=== PATIENT | female | born 1980 | race Caucasian/White ===

== ENCOUNTER 2016-12-15 12:49 | Emergency (ER) | payer OTHER ==
[2016-12-15 14:09] VITALS: BP 116/68
--- NOTE | 2016-12-15 14:40 | UC ---
Respiratory Complaint HPI - History of Current Complaint Chief Complaint: UCRespiratory Stated Complaint: RESPIRATORY Time Seen by Provider: 12/15/16 14:30 Hx Obtained From: Patient Hx Last Menstrual Period: 12/05/16 ?: No Onset/Duration: Gradual Onset, Lasting Days - 7, Worse Since - Last 3 days coughing through the night with 2-3 hours sleep. Severity Initially: Moderate Severity Currently: Severe Character: Cough: Nonproductive Aggravating Factors: Allergens Alleviating Factors: Bronchodilator Associated Signs And Symptoms: Positive: Wheezing, URI, Nasal Congestion, Hoarseness. Negative: Fever, Chills, Sinus Discomfort Related History: Seasonal Allergies - Risk Factors Pulmonary Embolism Risk Factors: Smoking Cardiac Risk Factors: Smoking Tuberculosis Risk Factors: Immune Deficienty - Allergies/Home Medications Allergies/Adverse Reactions: Allergies Allergy/AdvReac Type Severity Reaction Status Date / Time Codeine Allergy Severe Airway Verified 12/15/16 14:00 Obstruction Home Medications: Home Medications Adalimumab [Humira] 10 mg SC SEE INSTRUCTIONS 12/15/16 [History Confirmed ] Folic Acid TAB* [Folvite TAB*] 1 mg PO DAILY 12/15/16 [History Confirmed ] Loratadine [Claritin 10 MG CAP] 10 mg PO DAILY 12/15/16 [History Confirmed 12/15] Methotrexate TAB* 10 mg PO Q7D 12/15/16 [History Confirmed 12/15/16] PMH/Surg Hx/FS Hx/Imm Hx Previously Healthy: No - RA Respiratory History: Asthma Other History Of: Negative For: HIV, Hepatitis B, Hepatitis C - Surgical History Surgical History: Yes Surgery Procedure, Year, and Place: Tubal ligation, Appendectomy,. Lt - 2010 - Family History Known Family History: Positive: Cardiac Disease, Hypertension, Diabetes, Renal Disease - Paternal and maternal grandmothers had kidney "cancer." Negative: Blood Disorder - Social History Occupation: Employed Full-time Lives: With Family Alcohol Use: Occasionally Substance Use Type: None Smoking Status (MU): Heavy Every Day Tobacco Smoker Type: Cigarettes Amount Used/How Often: 1/2 PPD Household Exposure Type: Cigarettes Cessation Counseling: Patient Advised to Stop Review of Systems Constitutional: Other - sweats Respiratory: Shortness Of Breath, Cough All Other Systems Reviewed And Are Negative: Yes Physical Exam Triage Information Reviewed: Yes Appearance: No Pain Distress, Well-Nourished, Ill-Appearing - mild Vital Signs: Initial Vital Signs Temp 98.2 F 12/15/16 14:04 Pulse 64 12/15/16 14:04 Resp 18 12/15/16 14:04 BP 116/68 12/15/16 14:04 Pulse Ox 99 12/15/16 14:04 Vital Signs Reviewed: Yes Eyes: Positive: Conjunctiva Clear ENT Exam: Normal Neck exam: Normal Respiratory: Positive: Wheezing - diffuse expiratory Cardiovascular Exam: Normal Musculoskeletal Exam: Normal Neurological Exam: Normal Psychological Exam: Normal Skin Exam: Normal UC Diagnostic Evaluation - Laboratory O2 Sat by Pulse Oximetry: 99 Respiratory Course/Dx - Differential Dx/Diagnosis Differential Diagnosis/HQI/PQRI: Asthma, Lower Resp Infection, Sinusitis Provider Diagnoses: Acute URI. Asthma with acute exacerbation Discharge - Discharge Plan Condition: Stable Disposition: HOME Prescriptions: Albuterol HFA INHALER* [Ventolin HFA Inhaler*] 2 puff INH Q4H PRN #1 mdi PRN Reason: Wheezing predniSONE TAB* [Deltasone TAB*] 20 mg PO DAILY #18 tab Patient Education Materials: Upper Respiratory Infection (ED), Bronchospasm (ED ), Prednisone (By mouth) Additional Instructions: Smoking Cessation Tricks. 1. Cut down by 1 cigarette per day every 2-3 days. Write the number of smokes for that day on the calendar. 2. Identify triggers to smoking: after meals, on the phone, in the car, with coffee, on breaks at work, etc. 3. Formulate a plan with a behavior to replace the smoking. Fireballs in the car , doodle pad on the phone, flavored creamer for the coffee, go for a walk after a meal or on break at work. 4. For stress smokes do deep breathing relaxation. Breath deep in through the nose hold the breath in for a few seconds then breath out slowly through the mouth.
== END 2016-12-15 15:00 | disposition home or self-care (01) ==
LOC: UCCORT 12:49
DX: J06.9 Acute upper respiratory infection, unspecified (principal); J45.901 Unspecified asthma with (acute) exacerbation; F17.210 Nicotine dependence, cigarettes, uncomplicated
CPT/HCPCS: 99212; G0463

== ENCOUNTER 2017-02-01 09:26 | Day surgery (SDC) | payer OTHER ==
--- NOTE | 2017-01-22 03:34 | HP ---
PREOPERATIVE HISTORY AND PHYSICAL: DATE OF ADMISSION: 02/01/17 [facility] CHIEF COMPLAINT: Numbness and tingling in the right hand. HISTORY OF PRESENT ILLNESS: Harriet is a very pleasant 36-year-old female who complains of numbness and tingling in her bilateral hands, worse on the right than on the left. She has had trouble since January 2015. She had a nerve conduction study, which showed severe right and moderate left median nerve entrapment at the wrist. She presents now for right carpal tunnel release. PAST MEDICAL HISTORY: Significant for headaches, chronic cough, heartburn. PAST SURGICAL HISTORY: Negative. FAMILY HISTORY: Positive for cardiac disease, diabetes and cancer. SOCIAL HISTORY: She works as a hairdresser. She smokes cigarettes, occasionally consumes alcohol. REVIEW OF SYSTEMS: Positive for headaches, chronic cough, occasional shortness of breath with exertion and asthma. Positive for heartburn. Otherwise negative for cephalic, cardiovascular, respiratory, gastrointestinal, genitourinary, other musculoskeletal, skin, neurologic, endocrine, and hematologic symptoms. PHYSICAL EXAMINATION GENERAL: She is a healthy appearing, pleasant female in minimal distress at rest. VITAL SIGNS: She is 67 inches tall, weighs 194 pounds. Pulse 74, blood pressure 136/80. HEENT: Exam is unremarkable. Her eye movements are concentric. NECK: She has good range of motion of her neck without pain. No masses are palpated. RESPIRATORY: Her lungs are clear to auscultation, good inspiratory effort, no wheezing. CARDIAC: Regular rate and rhythm without murmur. PERIPHERAL VASCULAR: She has palpable pulses and no peripheral edema. EXTREMITIES: She has positive Tinel's sign and Phalen's test to the right hand. She can flex and extend her fingers well. She has decreased sensation to the median nerve distribution. NEUROLOGICAL: She is alert and oriented without focal deficits. IMPRESSION: Right carpal tunnel syndrome. PLAN: For right carpal tunnel release. The surgical procedure, risks and benefits were explained to the patient today, and she agrees to proceed. A prescription for Ultracet was sent to her pharmacy today. We will see her back in followup 10 to 14 days postop. [id number]/[facility]PS #: [id number] MTDD
[~2017-02-01 09:26] MED LIST: Buffered Lidocaine 0.9% SYRIN* 5 ML/SYR SYRINGE INTRADERM ONE; Famotidine IV* 10 MG/ML 2 ML (20 mg) IV ONE; Famotidine IV* 10 MG/ML 2 ML (20 mg) ONE; Metoclopramide TAB* 10 MG ONE; Metoclopramide TAB* 10 MG PO ONE; Ondansetron INJ* 2 MG/ML VIAL IV PRN; fentaNYL* 50 MCG/ML 2 ML VIAL (100 MCG VIAL) IV PRN
[2017-02-01] MEDS ORDERED: Lidocaine 2% PF * 5 ML VIAL ONE (10:08)
[2017-02-01] MEDS ORDERED: Dexamethasone IV* 4 MG/ML 1 ML (4 MG) ONE (10:08)
[2017-02-01] MEDS ORDERED: Ondansetron INJ* 2 MG/ML VIAL ONE (10:08)
[2017-02-01] MEDS ORDERED: Propofol* 10 MG/ML 20 ML BTL IV PUSH ONE (10:08)
[2017-02-01] MEDS ORDERED: Ketorolac INJ* 30 MG/ML 1 ML VIAL ONE (10:08)
[2017-02-01] MEDS ORDERED: Midazolam* 1 MG/ML 5 ML VIAL (5 MG) ONE (10:09)
[2017-02-01] MEDS ORDERED: fentaNYL* 50 MCG/ML 2 ML VIAL (100 MCG VIAL) ONE (10:09)
[2017-02-01] MEDS ORDERED: Lidocaine 1% INJ* 10 MG/ML 30 ML SDV ONE (10:16)
[2017-02-01 11:01] VITALS: BP 113/84
--- NOTE | 2017-02-02 02:45 | OP ---
DATE OF OPERATION: 02/01/17 [facility] DATE OF : 84 SURGEON: Rolanda Meadows MD. ANIMAL PATHOLOGIST: EYAL Junior. ANESTHESIOLOGIST: Vickey Ayoub MD ANESTHESIA: Local MAC. PRE-OP DIAGNOSIS: Right carpal tunnel syndrome. POST-OP DIAGNOSIS: Right carpal tunnel syndrome. OPERATIVE PROCEDURE: Right carpal tunnel release. ESTIMATED BLOOD LOSS: Zero. TOURNIQUET TIME: 5 minutes. INDICATIONS: Harriet is a 36-year-old female with numbness and tingling in the median nerve distribution of her right hand. She presents for right carpal tunnel release. DESCRIPTION OF PROCEDURE: The patient was brought to the operating room and was given a sedation anesthetic and a local infiltration with 10 cc of 1% plain lidocaine in the palm of her right hand. Skin of her right hand and forearm was prepped and draped in the usual sterile fashion. The hand and forearm was exsanguinated and the tourniquet elevated to 250 mmHg. A longitudinal incision was made in the palm in line with the ring finger, dissected sharply through the subcutaneous tissue down to the transverse carpal ligament. The ligament was divided sharply with a knife and then more proximally with the scissors. The nerve was dissected free from the surrounding tissue and there was an area of moderate compression at the mid portion of the ligament. The wound was irrigated, and the skin edges were reapproximated with 4-0 nylon suture. The wound was dressed with Xeroform, 4x4, Webril and an Dipak wrap. The patient tolerated the procedure well and was brought to the recovery room in good condition. [id number]/[facility] #: [id number] [facility]
== END 2017-02-01 11:21 | disposition home or self-care (01) ==
LOC: OREAST 09:26
PROVIDERS: ATTEND Orthopaedic Surgery
DX: G56.01 Carpal tunnel syndrome, right upper limb (principal); F17.210 Nicotine dependence, cigarettes, uncomplicated
CPT/HCPCS: A9270-GY; J1100; J1885; J2001; J2250; J2405; J2704; J3010

== ENCOUNTER 2017-07-12 07:46 | Day surgery (SDC) | payer OTHER ==
--- NOTE | 2017-07-08 19:43 | HP ---
PREOPERATIVE HISTORY AND PHYSICAL: DATE OF ADMISSION/SURGERY: 07/12/17 DATE OF OFFICE VISIT/ENCOUNTER: 06/12/17 ATTENDING PHYSICIAN: Rolanda Meadows MD * (DICTATED BY EYAL MARCANO) PROCEDURE: Left wrist carpal release. CHIEF COMPLAINT: Numbness and tingling, left hand. HISTORY OF PRESENT ILLNESS: This is a 36-year-old female who complains of numbness and tingling in her left hand ongoing since about January of 2015. She had a nerve conduction study, which showed moderate left median nerve entrapment at the wrist. She has recently undergone a right carpal release and had done quite well with that. She has now consented to proceed with a left wrist carpal tunnel release. PAST MEDICAL HISTORY: 1. Headaches. 2. Chronic cough. 3. Heartburn. 4. Asthma. PAST SURGICAL HISTORY: 1. Right carpal tunnel release. 2. Left pinky mallet finger repair. 3. Appendectomy. 4. Tubal ligation. MEDICATIONS: 1. Albuterol sulfate 1 puff every 6 hours p.r.n. 2. Ibuprofen 800 mg p.r.n. 3. Multi Adult Gummies 2 daily. 4. NicoDerm CQ 7 mg/24 hours apply daily for smoking cessation. 5. Otezla 30 mg twice daily. 6. Triamcinolone acetonide 0.1% apply daily as needed. 7. Vitamin C 5000 units 1 capsule once weekly. ALLERGIES: CODEINE causes hives and throat swelling. FAMILY MEDICAL HISTORY: Positive for cardiac disease, diabetes, and cancer. SOCIAL HISTORY: The patient is employed as a hair assistant. She does smoke cigarettes approximately half a pack per day and drinks alcohol on occasion. No recreational drug use. REVIEW OF SYSTEMS: General: Negative for fevers, chills, or night sweats. No known anesthesia problems. HEENT: Negative for headache, lightheadedness, or syncopal episodes. Integumentary: Negative for abrasions, lesions, or open wounds. Cardiothoracic: Negative for hypertension, chest pain, palpitations, or edema. Pulmonary: Positive for chronic cough. She does have shortness of breath with exertion secondary to asthma . GI: Negative for nausea, vomiting, diarrhea, or constipation. Positive for heartburn. : Negative for nocturia, urinary frequency, urgency, history of UTIs or kidney problems. Musculoskeletal: Positive for current complaint. Negative for chronic or intermittent back pain or history of fractures. Neurological: Positive for numbness and tingling, left hand. Negative for history of seizure, stroke, or epilepsy. Endocrine: Negative for diabetes or thyroid issue. Hematologic: Negative for easy bruising, anemia, excessive bleeding, or history DVT. Infectious Disease: Positive for history of MRSA. Negative for hepatitis C and HIV. PHYSICAL EXAMINATION GENERAL: Well-developed, well-nourished, 36-year-old female, in no acute distress. VITAL SIGNS: Height 5 feet 7 inches, weight 199 pounds, pulse rate 84, blood pressure 116/86. HEENT: Normocephalic, atraumatic. Pupils are equal, round, and reactive to light and accommodation. Extraocular movements are intact. Throat is clear. NECK: Supple. No palpable lymph nodes. PULMONARY: Lungs are clear to auscultation bilaterally. No wheezes, rales, or rhonchi. CARDIOVASCULAR: Regular rate and rhythm. S1, S2. No murmurs, rubs or gallops. No edema. ABDOMEN: Positive bowel sounds, soft, nontender. MUSCULOSKELETAL: On exam of her left hand, there is noticeable thenar atrophy; however, she does have some weakness with thumb abduction. She has a positive Tinel's sign and a positive Phalen's test. She has full range of motion in her fingers and wrist. NEUROLOGICAL: Alert and oriented x3. Cranial nerves II through XII are intact. Sensation is intact to light touch. IMAGING STUDIES: EMG/nerve conduction study shows moderate carpal tunnel syndrome on the left. IMPRESSION: Left carpal tunnel syndrome. PLAN: The patient is scheduled to undergo left wrist carpal tunnel release with Dr. Meadows on 07/12/17. She will return to the office in 10 days postop for followup and suture removal. A prescription for tramadol was e-scribed to the patient's pharmacy for postoperative management. EYAL MARCANO [id number]/[facility] #: [id number] KYLE
[~2017-07-12 07:46] MED LIST changes: -Famotidine IV* 10 MG/ML 2 ML (20 mg) IV ONE; -Famotidine IV* 10 MG/ML 2 ML (20 mg) ONE; -Metoclopramide TAB* 10 MG ONE; -Metoclopramide TAB* 10 MG PO ONE; +Midazolam* 1 MG/ML 2 ML VIAL (2 MG) ONE; -Ondansetron INJ* 2 MG/ML VIAL IV PRN; -fentaNYL* 50 MCG/ML 2 ML VIAL (100 MCG VIAL) IV PRN
[2017-07-12] MEDS ORDERED: fentaNYL* 50 MCG/ML 2 ML VIAL (100 MCG VIAL) ONE (08:11)
[2017-07-12] MEDS ORDERED: Lidocaine 1% INJ* 10 MG/ML 30 ML SDV ONE (08:35)
[2017-07-12] MEDS ORDERED: Lidocaine 2% PF * 5 ML VIAL ONE (09:04)
[2017-07-12] MEDS ORDERED: Propofol* 10 MG/ML 20 ML BTL IV PUSH ONE (09:04)
[2017-07-12] MEDS ORDERED: Naloxone* 0.4 MG/ML 1 ML VIAL IV PRN (09:25)
[2017-07-12] MEDS ORDERED: Ondansetron INJ* 2 MG/ML VIAL IV PRN (09:25)
[2017-07-12 09:30] VITALS: BP 117/63
--- NOTE | 2017-07-13 10:00 | OP ---
DATE OF OPERATION: 07/12/17 [facility] DATE OF : 84 SURGEON: Rolanda Meadows MD [employer] INSTRUCTOR: EYAL Junior ANESTHESIA: Local MAC. PRE-OP DIAGNOSIS: Left carpal tunnel syndrome. POST-OP DIAGNOSIS: Left carpal tunnel syndrome. OPERATIVE PROCEDURE: Left carpal tunnel release. INDICATIONS: Harriet is a 36-year-old female with numbness and tingling in the median nerve distribution of her left hand. She presents for left carpal tunnel release. ESTIMATED BLOOD LOSS: Zero. TOURNIQUET TIME: 5 minutes. DESCRIPTION OF PROCEDURE: The patient was brought to the operating room, was given a sedation anesthetic, and a local infiltration of 10 cc of 1% plain lidocaine in the palm of her left hand. The skin of her left hand and forearm was prepped and draped in the usual sterile fashion. The hand and forearm were exsanguinated and the tourniquet elevated to 250 mmHg. A longitudinal incision was made in the palm in line with the ring finger. We dissected through the subcutaneous tissue down to the transverse carpal ligament. The ligament was divided sharply with a knife and then more proximally with the scissors. The nerve was dissected free from the surrounding tissue and there was an area of moderate compression at the mid portion of the ligament. The wound was irrigated and closed in interrupted fashion with 4-0 nylon suture. The wound was dressed with Xeroform, 4x4, Webril, and an Dipak wrap. The patient tolerated the procedure well and was brought to the recovery room in good condition. [id number]/[facility] #: [id number] MTDD
== END 2017-07-12 09:52 | disposition home or self-care (01) ==
LOC: OREAST 07:46
PROVIDERS: ATTEND Orthopaedic Surgery
DX: G56.02 Carpal tunnel syndrome, left upper limb (principal); J45.909 Unspecified asthma, uncomplicated; M06.9 Rheumatoid arthritis, unspecified; L40.50 Arthropathic psoriasis, unspecified; F17.210 Nicotine dependence, cigarettes, uncomplicated
CPT/HCPCS: J2250; J2704; J3010

== ENCOUNTER 2018-06-19 11:50 | Day surgery (SDC) | payer MEDICAID, OTHER ==
[~2018-06-19 11:50] MED LIST changes: +Famotidine IV* 10 MG/ML 2 ML (20 mg) IV ONE; +Lactated Ringers 1000 ML Bag* 1,000 ML IV SCH; -Midazolam* 1 MG/ML 2 ML VIAL (2 MG) ONE
[2018-06-19] MEDS ORDERED: Famotidine IV* 10 MG/ML 2 ML (20 mg) ONE (12:28)
[2018-06-19] MEDS ORDERED: fentaNYL* 50 MCG/ML 2 ML VIAL (100 MCG VIAL) ONE (13:15)
[2018-06-19] MEDS ORDERED: Dexamethasone IV* 4 MG/ML 1 ML (4 MG) ONE (13:15)
[2018-06-19] MEDS ORDERED: Lidocaine 2% PF * 5 ML VIAL ONE (13:15)
[2018-06-19] MEDS ORDERED: Midazolam* 1 MG/ML 5 ML VIAL (5 MG) ONE (13:15)
[2018-06-19] MEDS ORDERED: Ondansetron INJ* 2 MG/ML VIAL ONE (13:15)
[2018-06-19] MEDS ORDERED: Ketorolac INJ* 30 MG/ML 1 ML VIAL ONE (13:15)
[2018-06-19] MEDS ORDERED: Propofol* 10 MG/ML 20 ML BTL ONE (13:15)
[2018-06-19] MEDS ORDERED: DiMENhydriNATE IV* 50 MG/ML VIAL IV PUSH PRN (13:49)
[2018-06-19] MEDS ORDERED: Naloxone* 0.4 MG/ML 1 ML VIAL IV PRN (13:49)
[2018-06-19] MEDS ORDERED: Acetaminophen TAB* 325 MG PO PRN (13:49)
[2018-06-19] MEDS ORDERED: Scopolamine 1.5 mg* PATCH ONE (14:11)
[2018-06-19] MEDS ORDERED: oxyCODONE/Acetamin 5/325 MG* TAB ONE (15:01)
[2018-06-19 15:07] VITALS: BP 122/93
--- NOTE | 2018-06-19 22:09 | OP ---
DATE OF OPERATION: 06/19/18 - [facility] DATE OF : 84 SURGEON: Norris Pickard MD ANESTHESIA: General endotracheal tube. CERTIFIED APPLIANCE SERVICE TECHNICIAN: None. PRE-OP DIAGNOSIS: Dysfunctional uterine bleeding. POST-OP DIAGNOSIS: Dysfunctional uterine bleeding. OPERATIVE PROCEDURE: D and C, hysteroscopy, endometrial ablation. ESTIMATED BLOOD LOSS: Minimal. SPECIMEN: Includes endometrium. FINDINGS: Include a normal cavity. Uterus was midposition. DESCRIPTION OF PROCEDURE: The patient identified, procedure identified as D and C, hysteroscopy, endometrial ablation. The patient was taken to the operating room, prepped and draped in the usual fashion in the dorsal lithotomy position under general anesthesia. Two single-tooth tenaculums were placed on the anterior lip of the cervix. The cervix was sounded to 8 cm. The Hegar dilator was used to dilate the cervix up to #8 giving the cervical length of 3 cm, making the cavity length of 5 cm. The above findings were noted on hysteroscopy. The hysteroscope was removed and the sharp curette was inserted and sharp curettage was performed with good sampling. The NovaSure device was opened. The array was checked. The device was placed within the uterine cavity , opening width of 4.1 with manipulation nested in at 4.1. The power setting was 113. The CO2 perforation test was performed. The device passed. NovaSure was enabled and NovaSure ablation took place for 57 seconds. At the end of the procedure, device was removed and the hysteroscope was inserted and a good NovaSure ablation was noted. All instruments were removed from the vagina. The sponge and instrument counts were correct. The patient returned to recovery room in stable condition. [id number]/[facility] #: [id number] MTDD
== END 2018-06-19 15:32 | disposition home or self-care (01) ==
LOC: OR 11:50
PROVIDERS: ATTEND Obstetrics & Gynecology
DX: N93.8 Other specified abnormal uterine and vaginal bleeding (principal); M06.9 Rheumatoid arthritis, unspecified; L40.50 Arthropathic psoriasis, unspecified; F41.9 Anxiety disorder, unspecified; F17.210 Nicotine dependence, cigarettes, uncomplicated
CPT/HCPCS: 88305; A9270-GY; J1100; J1885; J2250; J2405; J2704; J3010

== ENCOUNTER 2019-08-26 13:29 | Emergency (ER) | payer MEDICAID, OTHER ==
[2019-08-26 14:52] VITALS: BP 154/91
--- NOTE | 2019-08-26 15:08 | UC ---
Dental HPI - HPI Summary HPI Summary: 39 y/o female presents to the urgent care c/o Right lower dental infection and pain for the past 2 days. Pain now is worse 8/10 and is radiating into RIGHT ear and RT side of neck. She has taking ibuprofen 800mg prn w/o any improvement. Last dose taken today 1100AM. She has a featured molar on the same area and she made a dental appt for next week. She denies fever, trismus, RADER, dizziness, SOB, sore throat, abdominal pain, dizziness, chest pain, N/V/D. - History of Current Complaint Chief Complaint: UCDentalProblem Stated Complaint: DENTAL Time Seen by Provider: 08/26/19 15:03 Hx Obtained From: Patient Hx Last Menstrual Period: 08/17/2019 ?: No Onset/Duration: Gradual Onset, Lasting Days - 2 days, Still Present, Worse Since - last night Severity: Severe Pain Intensity: 10 Pain Scale Used: 0-10 Numeric Aggravating Factor(s): Chewing Alleviating Factor(s): OTC Meds - Ibuprofen PO 800mg. Last dose taken around 11am today Related History: Other - fracture molar on Rt lower jaw - Allergies/Home Medications Allergies/Adverse Reactions: Allergies Allergy/AdvReac Type Severity Reaction Status Date / Time codeine Allergy Airway Verified 08/27/19 12:16 Obstruction Home Medications: Home Medications Amoxicillin PO (*) [Amoxicillin 500 MG CAP*] 500 mg PO TID #30 cap 08/26/19 [Rx] Lidocaine 2% VISCOUS* [Xylocaine 2% Viscous*] 15 ml SWISH SPIT Q6H PRN #1 btl [Rx] PMH/Surg Hx/FS Hx/Imm Hx Previously Healthy: Yes Other Endocrine History: RA, psoriasis, Terence Respiratory History: Asthma Other History Of: Negative For: HIV, Hepatitis B, Hepatitis C - Surgical History Surgical History: Yes Surgery Procedure, Year, and Place: Tubal ligation, 2012. Appendectomy, , 2001. Lt [facility] - 2010. right carpal tunnel 01/2017, [facility]. LEFT CARPAL TUNNEL [id number] - Family History Known Family History: Positive: Cardiac Disease, Hypertension, Diabetes, Renal Disease - Paternal and maternal grandmothers had kidney "cancer." Negative: Blood Disorder - Social History Occupation: Employed Full-time Lives: With Family Alcohol Use: Occasionally Alcohol Amount: 3 per week Substance Use Type: None Smoking Status (MU): Heavy Every Day Tobacco Smoker Type: Cigarettes Amount Used/How Often: pack a day for 15 yrs Have You Smoked in the Last Year: Yes Household Exposure Type: Cigarettes Review of Systems All Other Systems Reviewed And Are Negative: Yes Constitutional: Positive: Negative Skin: Positive: Negative Eyes: Positive: Negative ENT: Positive: Dental Pain - RT lower jaw pain w/ mild swelling Respiratory: Positive: Negative Cardiovascular: Positive: Negative Gastrointestinal: Positive: Negative Genitourinary: Positive: Negative Motor: Positive: Negative Neurovascular: Positive: Negative Musculoskeletal: Positive: Negative Neurological/Mental Status: Positive: Headache - mild Psychological: Positive: Negative Is Patient Immunocompromised?: No Physical Exam - Summary Physical Exam Summary: Vital Signs Reviewed: Yes General: Well-Appearing, Well-Nourished female sitting in the examining table w /o any respiratory or pain distress Eyes: Positive: Conjunctiva Clear - PERRLA, EOMI, ENT: Positive: Normal ENT inspection, Hearing grossly normal, Pharynx normal, TMs normal - B/L external ear canals clear,. Negative: Tonsillar swelling, Tonsillar exudate, Trismus Dental: Positive: Gross Decay/Caries on molar w/ fractured molar #29 w/ gingival swelling and erythema, tender to percussion. involves tissue surrounding theses molars, w/ positive anterior Cervical Lymphadenopathy. Neck: Positive: Supple Respiratory: Positive: Chest non-tender, Lungs clear, Normal breath sounds, No respiratory distress Cardiovascular: Positive: RRR, No Murmur, Pulses Normal, Brisk Capillary Refill Abdomen Description: Positive: Nontender, No Organomegaly, Soft. Negative: CVA Tenderness (R), CVA Tenderness (L) Bowel Sounds: Positive: Present Musculoskeletal: Positive: Strength Intact, ROM Intact, No Edema Neurological Exam: Normal Psychological Exam: Normal Skin Exam: Normal Triage Information Reviewed: Yes Vital Signs: Initial Vital Signs Temp 98.2 F 08/26/19 14:47 Pulse 69 08/26/19 14:47 Resp 16 08/26/19 14:47 BP 154/91 08/26/19 14:47 Pulse Ox 100 08/26/19 14:47 Dental Complaint Course/Dx - Course Course Of Treatment: 39 y/o female presents to the urgent care c/o Right lower dental infection and pain for the past 2 days. Pain now is worse 8/10 and is radiating into RIGHT ear and RT side of neck. She has taking ibuprofen 800mg prn w/o any improvement. Last dose taken today 1100AM. She has a featured molar on the same area and she made a dental appt for next week. She denies fever, trismus, RADER, dizziness, SOB, sore throat, abdominal pain, dizziness, chest pain, N/V/D. Hx obtained. Pt with dental abscess around fracture molar #29 w/ gross decay on examination. Pt given viscous Lidocaine at the clinic to alleviate symptoms by the nurse. Pt Rx Amoxicillin PO and advised to continue taking Ibuprofen PO as directed below. Pt strongly advised to f/u with Dentist as soon as possible for further evaluation and treatment.Pt's BP is elevated today advised to decrease salt in diet, monitor BP and f/u with PCP if BP continues to be elevated for further management. D/C instructions explained. Pt understood and agreed with the plan of care. - Differential Dx/Diagnosis Differential Diagnosis/Dx: Dental Abscess, Dental Caries, Gingivitis, Odontogenic Pain, Peridontic Disease, Tonsillitis Provider Diagnosis: Dental abscess, Elevated BP without diagnosis of hypertension Discharge ED - Sign-Out/Discharge Documenting (check all that apply): Patient Departure - D/C home All imaging exams completed and their final reports reviewed: No Studies - Discharge Plan Condition: Stable Disposition: HOME Prescriptions: Amoxicillin PO (*) [Amoxicillin 500 MG CAP*] 500 mg PO TID #30 cap Lidocaine 2% VISCOUS* [Xylocaine 2% Viscous*] 15 ml SWISH SPIT Q6H PRN #1 btl PRN Reason: dental pain Patient Education Materials: Dental Abscess (ED) Referrals: [facility]ERRAL [Outside] - 3 Days Additional Instructions: 1-Please take full course of antibiotics to avoid resistance. Take yogurt w/ probiotics or culturelle to protect your GI system 2- Continue taking Ibuprofen PO 800mg q6-8hrs prn after meals to alleviate pain and swelling. Alternate w/ TylenolPO if pain is persistent. Apply cold compresses 3- F/u with your Dentist or Dental List provided as soon as possible for further treatment. 4- If symptoms do not improve or worsen please return to the urgent care or f/u with your PCP in 3 days for further evaluation and treatment 5- Your BP is elevated today advised to decrease salt in diet, monitor BP and f/ u with PCP for further management. - Billing Disposition and Condition Condition: STABLE Disposition: Home
[2019-08-26] MEDS ORDERED: Lidocaine 2% VISCOUS* 15 ML UDC SWISH SPIT ONE (15:20)
== END 2019-08-26 15:49 | disposition home or self-care (01) ==
LOC: UCCORT 13:29
DX: K04.7 Periapical abscess without sinus (principal); F17.210 Nicotine dependence, cigarettes, uncomplicated; R03.0 Elevated blood-pressure reading, without diagnosis of hypertension; R51 Headache; Z88.5 Allergy status to narcotic agent
CPT/HCPCS: 99212; G0463

== ENCOUNTER 2019-08-27 12:13 | Observation (INO) | payer MEDICAID ==
[2019-08-27] MEDS ORDERED: Clindamycin 600 MG/D5W BAG(*) 600 MG/50 ML BAG IV ONE (14:27)
[2019-08-27] MEDS ORDERED: Morphine 4 MG/ML VIAL (1 ml) 4 MG/ML VIAL IV ONE ×2 (14:36→16:40)
[2019-08-27 15:06] LABS: ABS Eosinophils 0.2 10^3/ul (0-0.6); ABS Lymphocytes 1.3 10^3/ul (1.0-4.8); ABS Monocytes 0.7 10^3/ul (0-0.8); ABS Neutrophils 10.2 10^3/ul (1.5-7.7); Eosinophil % 1.4 %; Hematocrit 38 % (35-47); Hemoglobin 13.1 g/dL (12.0-16.0); Lymphocyte % 10.4 %; Mean Corpuscular HGB Conc 35 g/dL (31-36); Mean Corpuscular Hemoglobin 31 pg (27-31); Mean Corpuscular Volume 90 fL (80-97); Mean Platelet Volume 8.5 fL (7.4-10.4); Nucleated Red Blood Cells % 0.1; Platelet Count 420 10^3/uL (150-450); Red Blood Count 4.19 10^6 /uL (3.70-4.87); Red Cell Distribution Width 12 % (10-15); White Blood Count 12.4 10^3/uL (3.5-10.8)
[2019-08-27] MEDS ORDERED: oxyCODONE/Acetamin 5/325 MG* TAB PO ONE (15:19)
[2019-08-27 15:25] LABS: Albumin 4.6 g/dL (3.2-5.2); Albumin/Globulin Ratio 1.2 (1-3); C Reactive Protein 40.63 mg/L (<8.01); Calcium 9.6 mg/dL (8.6-10.3); EGFR Non-African American 138.8 (>60); Globulin 3.9 g/dL (2-4); Potassium 3.8 mmol/L (3.5-5.0); Total Bilirubin 0.5 mg/dL (0.2-1.0); Total Protein 8.5 g/dL (6.4-8.9)
[2019-08-27] MEDS ORDERED: Iohexol 300* (CONTRAST) 10 ML SDV IV ONE (15:37)
--- NOTE | 2019-08-27 16:33 | ED ---
Throat Pain/Nasal Congestion - HPI Summary HPI Summary: 39 year old female presents with dental pain for past 4 days. She has history of RA. She was seen in urgent care yesterday and started amoxicillin as taken to days worth of such. She states the swelling continues to spread. She started on her neck. she denies any chest pain or shortness of breath. She states she is in severe pain. She admits difficulty swallowing due to the pain. She is able to speak in full sentences. She is in pain distress. - History of Current Complaint Chief Complaint: EDDentalPain Time Seen by Provider: 08/27/19 13:57 - Allergies/Home Medications Allergies/Adverse Reactions: Allergies Allergy/AdvReac Type Severity Reaction Status Date / Time codeine Allergy Airway Verified 08/27/19 12:16 Obstruction Home Medications: Home Medications Amoxicillin PO (*) [Amoxicillin 500 MG CAP*] 500 mg PO TID #30 cap 08/26/19 [Rx Confirmed 08/27/19] Lidocaine 2% VISCOUS* [Xylocaine 2% Viscous*] 15 ml SWISH SPIT Q6H PRN #1 btl [Rx Confirmed 08/27/19] PMH/Surg Hx/FS Hx/Imm Hx Endocrine/Hematology History: Denies: Hx Diabetes, Hx Thyroid Disease Cardiovascular History: Denies: Hx Congestive Heart Failure, Hx Deep Vein Thrombosis, Hx Hypertension , Hx Myocardial Infarction, Hx Pacemaker/ICD, Other Cardiovascular Problems/ Disorders Respiratory History: Reports: Hx Asthma Denies: Hx Chronic Obstructive Pulmonary Disease (COPD), Hx Lung Cancer, Hx Pneumonia, Hx Pulmonary Embolism, Other Respiratory Problems/Disorders GI History: Denies: Hx Gall Bladder Disease, Hx Gastrointestinal Bleed, Hx Ulcer, Hx Urosepsis, Other GI Disorders History: Reports: Hx Kidney Infection - years ago Denies: Hx Kidney Stones, Hx Renal Disease, Other Problems/Disorders Musculoskeletal History: Reports: Hx Arthritis - Rheumatoid Arthritis, psoriatic arthritis, Hx Tendonitis - HX OF IN HANDS IN THE PAST Denies: Other Musculoskeletal History Sensory History: Denies: Hx Contacts or Glasses, Hx Hearing Aid Opthamlomology History: Denies: Hx Contacts or Glasses Neurological History: Reports: Hx Headaches, Hx Migraine - 2 TIMES MONTHLY- EXCEDRIN MIGRAIN AND ADVIL FOR AND REST Denies: Hx Dementia, Hx Seizures, Hx Transient Ischemic Attacks (TIA), Other Neuro Impairments/Disorders Psychiatric History: Reports: Hx Anxiety - HX OF- NO MEDICATION FOR AT THIS TIME , Hx Depression - HX OF- NO MEDICATION FOR AT THIS TIME Denies: Hx Panic Disorder, Hx Schizophrenia, Hx Bipolar Disorder - Surgical History Surgery Procedure, Year, and Place: Tubal ligation, 2013. Appendectomy, , 2002. [facility] - 2010. right carpal tunnel 01/2017, [facility]. LEFT CARPAL TUNNEL [id number] Hx Anesthesia Reactions: Yes - NAUSEA AND VOMITING Infectious Disease History: No Infectious Disease History: Reports: Hx of Known/Suspected MRSA - left 3rd finger 2012 Denies: Hx Clostridium Difficile, Hx Hepatitis, Hx Human Immunodeficiency Virus (HIV), Hx Shingles, Hx Tuberculosis, Hx Known/Suspected VRE, Hx Known/ Suspected VRSA, History Other Infectious Disease, Traveled Outside the [place] in Last 30 Days - Family History Known Family History: Positive: Cardiac Disease, Hypertension, Diabetes, Renal Disease - Paternal and maternal grandmothers had kidney "cancer." Negative: Blood Disorder - Social History Alcohol Use: Occasionally Alcohol Amount: 3 per week Substance Use Type: Reports: None Smoking Status (MU): Heavy Every Day Tobacco Smoker Type: Cigarettes Amount Used/How Often: pack a day for 15 yrs Have You Smoked in the Last Year: Yes Review of Systems Negative: Fever Positive: Dental Pain Negative: Chest Pain Negative: Shortness Of Breath All Other Systems Reviewed And Are Negative: Yes Physical Exam Triage Information Reviewed: Yes Vital Signs On Initial Exam: Initial Vitals Temp Pulse Resp BP Pulse Ox 97.8 F 90 18 146/101 100 08/27/19 12:15 08/27/19 12:15 08/27/19 12:15 08/27/19 12:15 08/27/19 12:15 Vital Signs Reviewed: Yes Appearance: Positive: Well-Appearing Skin: Positive: Warm, Dry Head/Face: Positive: Normal Head/Face Inspection Eyes: Positive: Normal, EOMI, LILY, Conjunctiva Clear ENT: Positive: Pharynx normal, TMs normal Neck: Positive: Tenderness @ - anterior cervical, Enlarged Nodes @ - anterior cervical, Other: - tenderness on right side of neck with edema noted there Respiratory/Lung Sounds: Positive: Clear to Auscultation, Breath Sounds Present Cardiovascular: Positive: Normal, RRR Musculoskeletal: Positive: Normal Neurological: Positive: Normal Psychiatric: Positive: Normal Procedures - Sedation Patient Received Moderate/Deep Sedation with Procedure: No Diagnostics - Vital Signs Vital Signs Temp Pulse Resp BP Pulse Ox 08/27/19 16:15 18 08/27/19 15:03 16 08/27/19 12:15 97.8 F 90 18 146/101 100 - Laboratory Lab Results: Lab Results 08/27/19 08/27/19 08/27/19 Range/Units 14:53 14:53 14:53 WBC 12.4 H (3.5-10.8) 10^3/uL RBC 4.19 (3.70-4.87) 10^6 /uL Hgb 13.1 (12.0-16.0) g/dL Hct 38 (35-47) % MCV 90 (80-97) fL MCH 31 (27-31) pg MCHC 35 (31-36) g/dL RDW 12 (10-15) % Plt Count 420 (150-450) 10^3/uL MPV 8.5 (7.4-10.4) fL Neut % (Auto) 82.4 % Lymph % (Auto) 10.4 % Mcpherson % (Auto) 5.4 % Eos % (Auto) 1.4 % Baso % (Auto) 0.4 % Absolute Neuts (auto) 10.2 H (1.5-7.7) 10^3/ul Absolute Lymphs (auto) 1.3 (1.0-4.8) 10^3/ul Absolute Monos (auto) 0.7 (0-0.8) 10^3/ul Absolute Eos (auto) 0.2 (0-0.6) 10^3/ul Absolute Basos (auto) 0.0 (0-0.2) 10^3/ul Absolute Nucleated RBC 0.0 10^3/ul Nucleated RBC % 0.1 Sodium 137 (135-145) mmol/L Potassium 3.8 (3.5-5.0) mmol/L Chloride 107 (101-111) mmol/L Carbon Dioxide 24 (22-32) mmol/L Anion Gap 6 (2-11) mmol/L BUN 10 (6-24) mg/dL Creatinine 0.50 L (0.51-0.95) mg/dL Est GFR ( Amer) 168.0 (>60) Est GFR (Non-Af Amer) 138.8 (>60) BUN/Creatinine Ratio 20.0 (8-20) Glucose 105 H (70-100) mg/dL Lactic Acid 0.8 (0.5-2.0) mmol/L Calcium 9.6 (8.6-10.3) mg/dL Total Bilirubin 0.50 (0.2-1.0) mg/dL AST 14 (13-39) U/L ALT 20 (7-52) U/L Alkaline Phosphatase 87 (34-104) U/L C-Reactive Protein 40.63 H (<8.01) mg/L Total Protein 8.5 (6.4-8.9) g/dL Albumin 4.6 (3.2-5.2) g/dL Globulin 3.9 (2-4) g/dL Albumin/Globulin Ratio 1.2 (1-3) Result Diagrams: 08/28/19 06:09 08/27/19 14:53 Lab Statement: Any lab studies that have been ordered have been reviewed, and results considered in the medical decision making process. - Radiology neck Radiology Interpretation Completed By: Radiologist Summary of Radiographic Findings: IMPRESSION: 1. Right facial and anterior neck cellulitis with no organized fluid collection. This is likely odontogenic in the context of an untreated right first mandibular molar caries. The airway is grossly patent. The right jugular vein opacifies normally. 2. Cervical lymphadenopathy is likely reactive. Re-Evaluation - Re-Evaluation First Eval Comment: pain improved with morphine but returned. Second Eval Re-Evaluation Time: 16:55 Comment: discussed admission with patient and she is agreeable, is resting comfortable in room EENT Course/Dx - Course Course Of Treatment: 39 year old female presents with dental pain for past 4 days. She has history of RA. She was seen in urgent care yesterday and started amoxicillin as taken to days worth of such. She states the swelling continues to spread. She started on her neck. she denies any chest pain or shortness of breath. She states she is in severe pain. She admits difficulty swallowing due to the pain. She is able to speak in full sentences. She is in pain distress. on exam has extensive swelling to right side of face into neck, has tender cervical lymphadenopathy, pharyx normal. lungs CTA. wbc 12.4 gave dose of clindamycin. got CT to look for abscess but only shows cellulitis. discussed with dr ferrara with how rapid swelling has spread while discussed case with hospitalists. dr swenson agrees to admit. - Differential Diagnoses Differential Diagnoses: Cellulitis, Dental Abscess, Dental Caries - Diagnoses Provider Diagnoses: Facial cellulitis Discharge ED - Sign-Out/Discharge Documenting (check all that apply): Patient Departure - Discharge Plan Condition: Stable Disposition: ADMITTED TO [facility] - Billing Disposition and Condition Condition: STABLE Disposition: Admitted to [facility]
[2019-08-27] MEDS ORDERED: Dexamethasone IV* 4 MG/ML 1 ML (4 MG) IV SLOW PU ONE (17:55)
[2019-08-27] MEDS ORDERED: Ondansetron INJ* 2 MG/ML VIAL IV PRN (18:24)
[2019-08-27] MEDS ORDERED: Acetaminophen TAB* 325 MG PO PRN (18:31)
[2019-08-27] MEDS: Nicotine PATCH 21 MG/24 HR* PATCH TRANSDERM SCH (18:57)
[2019-08-27] MEDS: Ketorolac INJ* 15 MG/ML 1 ML VIAL IV PUSH PRN (19:03)
--- NOTE | 2019-08-27 20:45 | HP ---
HISTORY AND PHYSICAL: DATE OF ADMISSION: 08/27/19 PROVIDER: Chelle Aceves NP PRIMARY CARE PROVIDER: None. ATTENDING PHYSICIAN WHILE IN THE HOSPITAL: Dr. Emma Street * (dictated by Chelle Aceves NP). CHIEF COMPLAINT: Facial swelling, dental pain. HISTORY OF PRESENT ILLNESS: Ms. Romo is a 39-year-old female with a past medical history significant for psoriatic arthritis, rheumatoid arthritis, history of migraines, and bipolar, who presented to the emergency room with complaints of dental pain and facial swelling. The patient reports that she started having dental pain approximately 3 days ago. She was seen in [place] and started on amoxicillin 500 mg. The patient reports that she has taken 5 doses of amoxicillin but continued to have increased facial swelling and increased pain, so she presented to the emergency room for further evaluation. The patient also reports that she has been taking Advil and Tylenol around the clock due to her pain. While in the emergency room, the patient had routine lab work drawn. She was found to have a white count of 12.4 and extensive facial swelling. Due to these findings, Hospital Medicine was asked to see and evaluate her for admission. PAST MEDICAL HISTORY: Significant for: 1. Psoriatic arthritis. 2. Rheumatoid arthritis. 3. Migraine. 4. Bipolar disorder. PAST SURGICAL HISTORY: 1. Tubal ligation. 2. Appendectomy. 3. Ablation, uterine. 4. Finger surgery. 5. Carpal tunnel release bilaterally. HOME MEDICATIONS: Include: 1. Amoxicillin 500 mg p.o. t.i.d. 2. Advil as needed. ALLERGIES: To CODEINE causes airway obstruction (at the age of 4). FAMILY HISTORY: Mother with a history of TIA. Father with diabetes. Mother with unknown-type intestinal cancer. Grandmother with kidney and breast cancer. SOCIAL HISTORY: The patient smokes 1 pack per day. Reports rare alcohol use. Reports she smokes weed daily. Surrogate decision maker in the event she is unable to make her own decisions is Margarita Milner. She is a full code. REVIEW OF SYSTEMS: She denies any fevers, unintended weight loss, chest pain, edema, cough, hemoptysis, shortness of breath. She does report some nausea. Denies any diarrhea or abdominal pain, gross hematuria or dysuria. Denies any focal weakness, sensory loss, visual complaints, dysphagia, arthralgias, myalgias, rashes, lesions, open sores, psychosis, or anxiety. The patient does complain of right facial swelling and right lower jaw and tooth pain. PHYSICAL EXAMINATION GENERAL: At this time, Ms. Romo is alert and oriented, resting on the stretcher in the emergency room. She is complaining of moderate pain. VITAL SIGNS: Blood pressure 146/101, heart rate 90, respirations 18, O2 saturation 100%, and temperature was 97.8. HEENT: Head is atraumatic, normocephalic. Eyes: EOMs are intact. Sclerae anicteric and not pale. Right face is noted to have swelling, very tender to touch. She does have a broken molar in the right lower. Dental caries are visible with a fractured tooth bottom molar on the right. NECK: Slight swelling and tenderness. The patient is without stridor. She is tolerating oral secretions without difficulty. She is able to swallow and drink fluids without difficulty. Neck is supple. LUNGS: Clear to auscultation bilaterally. No wheezes, rales, or rhonchi. CARDIAC: S1 and S2. Regular rate and rhythm. No murmurs, rubs, or gallops. ABDOMEN: Soft and nontender. Bowel sounds are present x4. EXTREMITIES: She is able to move all 4 extremities. No clubbing or cyanosis. NEUROLOGIC: She is awake, alert, and oriented x3. SKIN: Intact. DIAGNOSTIC STUDIES/LAB DATA: WBCs are 12.4, RBCs 4.19, hemoglobin 13.1, hematocrit 38, platelet count 420. Sodium 137, potassium 3.8, chloride 107, carbon dioxide 24, anion gap 6, BUN 10, creatinine 0.50, glucose 105, lactic acid 0.8, calcium 9.6. Total bilirubin 0.50, ASTs 14, ALTs 20, alkaline phosphatase 87. C-reactive protein was 40.63. She had a CT of the neck, radiologist's impression: Right facial and anterior neck cellulitis with no organized fluid collection. This is likely odontogenic in the context of untreated right first mandibular molar caries. The airway is grossly patent. The right jugular vein opacifies normally. Cervical lymphadenopathy is likely reactive. ASSESSMENT AND PLAN: Ms. Romo is a 39-year-old female with a past medical history significant for psoriatic arthritis, rheumatoid arthritis, migraines, and bipolar disorder, who presented to the emergency room with the complaints of right facial swelling and dental pain. She will be admitted under observation for: 1. Dental pain. I suspect her dental pain is related to underlying fractured right lower molar, which is causing her facial cellulitis and dental pain. She was previously started on amoxicillin 500 mg. She has completed 5 doses prior to presentation to the emergency room. She was transitioned to clindamycin IV. We will continue on clindamycin IV. She did receive 10 mg of Decadron in the emergency room for the facial swelling. I will give her Toradol q.6 hours as needed for pain. She can also have 2 Percocet every 6 hours as needed for severe pain. 2. Facial and neck cellulitis. I suspect this is related to her underlying dental infection. We will continue her on clindamycin. I will get O2 saturations every q.2 hours and p.r.n. shortness of breath overnight. She can have pain meds as needed as ordered. 3. Rheumatoid arthritis and psoriatic arthritis. The patient is not currently receiving treatment. She reports her last treatment was approximately 6 months ago, at that time, she was receiving Remicade. Due to insurance changes, the patient has not continued treatment for psoriatic arthritis or rheumatoid arthritis at this time. 4. FEN. She can have mechanical soft regular diet. 5. Tobacco abuse. The patient does smoke a pack per day. We will give her a nicotine patch. 6. Code status. She is a full code. 7. DVT prophylaxis. We will encourage ambulation. TIME SPENT: Time spent on this admission was 60 minutes, greater than half that time was spent at the bedside reviewing events leading thus far to her hospitalization, performing physical exam, and reviewing my plan of care. I have discussed this with my attending, Dr. Emma Street; she is in agreement with my plan. CHELLE ACEVES, BARBACK [id number]/[facility] #: [id number] KYLE
[2019-08-27] MEDS: NS 0.9% 1000 ML** 1,000 ML IV SCH (20:46)
[2019-08-27] MEDS: Chlorhexidine MOUTHWASH 0.12%* 15 ML UDC SWISH SPIT SCH (20:46)
[2019-08-27] MEDS: oxyCODONE/Acetamin 5/325 MG* TAB PO PRN (21:50)
[2019-08-27] MEDS: Clindamycin 600 MG/D5W BAG(*) 600 MG/50 ML BAG IV SCH (23:27)
[2019-08-28] MEDS: Ketorolac INJ* 15 MG/ML 1 ML VIAL IV PUSH PRN ×4 (02:49→21:03)
[2019-08-28] MEDS: oxyCODONE/Acetamin 5/325 MG* TAB PO PRN ×3 (06:09→18:11)
[2019-08-28] MEDS: Nicotine Patch Removal NOTE PATCH OFF SCH ×2 (06:14→21:12)
[2019-08-28 06:20] LABS: ABS Basophils 0.1 10^3/ul (0-0.2); ABS Lymphocytes 0.6 10^3/ul (1.0-4.8); ABS Monocytes 0.3 10^3/ul (0-0.8); ABS Neutrophils 9.7 10^3/ul (1.5-7.7); Hematocrit 36 % (35-47); Hemoglobin 12.4 g/dL (12.0-16.0); Lymphocyte % 5.9 %; Mean Corpuscular HGB Conc 35 g/dL (31-36); Mean Corpuscular Hemoglobin 32 pg (27-31); Mean Corpuscular Volume 91 fL (80-97); Mean Platelet Volume 8.1 fL (7.4-10.4); Platelet Count 374 10^3/uL (150-450); Red Blood Count 3.92 10^6 /uL (3.70-4.87); Red Cell Distribution Width 12 % (10-15); White Blood Count 10.7 10^3/uL (3.5-10.8)
[2019-08-28] MEDS: Nicotine PATCH 21 MG/24 HR* PATCH TRANSDERM SCH (07:56)
[2019-08-28] MEDS: Clindamycin 600 MG/D5W BAG(*) 600 MG/50 ML BAG IV SCH ×2 (07:57→16:00)
[2019-08-28] MEDS ORDERED: Docusate CAP* 100 MG PO PRN (08:52)
[2019-08-28] MEDS ORDERED: Polyethylene Glycol 3350* 17 GM PACKET PO PRN (08:52)
[2019-08-28] MEDS: Chlorhexidine MOUTHWASH 0.12%* 15 ML UDC SWISH SPIT SCH ×3 (09:06→18:12)
[2019-08-28] MEDS: NS 0.9% 1000 ML** 1,000 ML IV SCH (11:12)
[2019-08-28] MEDS: Lactobacillus Acidophilus* 1 TAB PO SCH (11:12)
--- NOTE | 2019-08-28 13:14 | PN ---
Subjective Date of Service: 08/28/19 Interval History: Right facial swelling and mild erythema improved from yesterday. Patient reports that she is feeling better. reports that swelling is starting to improve. Denies fever or chills overnight. Denies difficulty swallowing. Denies chest pain or shortness of breath. Denies abd pain n/v/d. Family History: Unchanged from Admission Social History: Unchanged from Admission Past Medical History: Unchanged from Admission Objective Active Medications: Acetaminophen (Tylenol Tab*) 650 mg PO Q6H PRN PRN Reason: PAIN - MILD Chlorhexidine Gluconate (Peridex Mouth Wash 0.12%*) 15 ml SWISH SPIT TID [facility] Last Admin: 08/28/19 09:06 Dose: 15 ml Docusate Sodium (Colace Cap*) 100 mg PO BID PRN PRN Reason: CONSTIPATION Clindamycin HCl/Dextrose (Cleocin 600 Mg/50 Ml(*)) 600 mg in 50 mls @ 100 mls/ hr IV Q8H [facility] Last Admin: 08/28/19 07:57 Dose: 100 mls/hr Sodium Chloride (Ns 0.9% 1000 Ml) 1,000 mls @ 75 mls/hr IV PER RATE [facility] Last Admin: 08/28/19 11:12 Dose: 75 mls/hr Ketorolac Tromethamine (Toradol Inj*) 15 mg IV PUSH Q6H PRN PRN Reason: PAIN - MODERATE Stop: 08/31/19 18:29 Last Admin: 08/28/19 09:06 Dose: 15 mg Lactobacillus Rhamnosus (Lactobacillus Acidophilus*) 1 tab PO DAILY [facility] Last Admin: 08/28/19 11:12 Dose: 1 tab Nicotine (Nicotine Patch 21 Mg/24 Hr*) 1 patch TRANSDERM DAILY [facility] Last Admin: 08/28/19 07:56 Dose: 1 patch Ondansetron HCl (Zofran Inj*) 4 mg IV Q4H PRN PRN Reason: NAUSEA/VOMITING Last Admin: 08/27/19 18:57 Dose: 4 mg Oxycodone/Acetaminophen (Percocet 5/325 Tab*) 1 tab PO Q6H PRN PRN Reason: PAIN - SEVERE Last Admin: 08/28/19 12:38 Dose: 1 tab Pharmacy Profile Note (Nicotine Patch Removal Note*) 1 note PATCH OFF 2100 [facility] Last Admin: 08/28/19 06:14 Dose: 1 note Polyethylene Glycol/Electrolytes (Miralax (17 Gm Dose [place])) 17 gm PO DAILY PRN PRN Reason: CONSTIPATION Vital Signs - 8 hr 08/28/19 08/28/19 08/28/19 06:09 07:44 08:58 Temperature 98.6 F Pulse Rate 54 Respiratory 20 16 16 Rate Blood Pressure 117/66 (mmHg) O2 Sat by Pulse 99 Oximetry 08/28/19 08/28/19 10:52 12:38 Temperature 97.9 F Pulse Rate 70 Respiratory 18 16 Rate Blood Pressure 127/71 (mmHg) O2 Sat by Pulse 99 Oximetry Oxygen Devices in Use Now: None Appearance: appears comfortable resting in bed . no acute distress Eyes: No Scleral Icterus Ears/Nose/Mouth/Throat: NL Teeth, Lips, Gums, - - moderate right facial swelling mild amount of redness noted to chin and right face. lips with swelling improved from yesterday. Neck: NL Appearance and Movements; NL JVP, Trachea Midline Respiratory: Symmetrical Chest Expansion and Respiratory Effort, Clear to Auscultation Cardiovascular: NL Sounds; No Murmurs; No JVD, No Edema Abdominal: NL Sounds; No Tenderness; No Distention Extremities: No Edema, No Clubbing, Cyanosis Skin: No Rash or Ulcers, - - right facial and chin swelling Result Diagrams: 08/28/19 06:09 08/27/19 14:53 Additional Lab and Data: Lab Results 08/27/19 08/27/19 08/27/19 Range/Units 14:53 14:53 14:53 WBC 12.4 H (3.5-10.8) 10^3/uL RBC 4.19 (3.70-4.87) 10^6 /uL Hgb 13.1 (12.0-16.0) g/dL Hct 38 (35-47) % MCV 90 (80-97) fL MCH 31 (27-31) pg MCHC 35 (31-36) g/dL RDW 12 (10-15) % Plt Count 420 (150-450) 10^3/uL MPV 8.5 (7.4-10.4) fL Neut % (Auto) 82.4 % Lymph % (Auto) 10.4 % Braxton % (Auto) 5.4 % Eos % (Auto) 1.4 % Baso % (Auto) 0.4 % Absolute Neuts (auto) 10.2 H (1.5-7.7) 10^3/ul Absolute Lymphs (auto) 1.3 (1.0-4.8) 10^3/ul Absolute Monos (auto) 0.7 (0-0.8) 10^3/ul Absolute Eos (auto) 0.2 (0-0.6) 10^3/ul Absolute Basos (auto) 0.0 (0-0.2) 10^3/ul Absolute Nucleated RBC 0.0 10^3/ul Nucleated RBC % 0.1 Sodium 137 (135-145) mmol/L Potassium 3.8 (3.5-5.0) mmol/L Chloride 107 (101-111) mmol/L Carbon Dioxide 24 (22-32) mmol/L Anion Gap 6 (2-11) mmol/L BUN 10 (6-24) mg/dL Creatinine 0.50 L (0.51-0.95) mg/dL Est GFR ( Amer) 168.0 (>60) Est GFR (Non-Af Amer) 138.8 (>60) BUN/Creatinine Ratio 20.0 (8-20) Glucose 105 H (70-100) mg/dL Lactic Acid 0.8 (0.5-2.0) mmol/L Calcium 9.6 (8.6-10.3) mg/dL Total Bilirubin 0.50 (0.2-1.0) mg/dL AST 14 (13-39) U/L ALT 20 (7-52) U/L Alkaline Phosphatase 87 (34-104) U/L C-Reactive Protein 40.63 H (<8.01) mg/L Total Protein 8.5 (6.4-8.9) g/dL Albumin 4.6 (3.2-5.2) g/dL Globulin 3.9 (2-4) g/dL Albumin/Globulin Ratio 1.2 (1-3) Assess/Plan/Problems-Billing Assessment: Ms. Romo is a 39 y.o female with a past medical hx of RA and bipolar who presented to the emergency room with dental pain and right facial swelling. admitted for cellulitis. - Patient Problems (1) Dental infection Current Visit: Yes Status: Acute Code(s): K04.7 - PERIAPICAL ABSCESS WITHOUT SINUS SNOMED Code(s): 860981059 Comment: Patient has a fractured right bottom molar - right facial swelling and redness - will continue Clindamycin 600 mg IV every 8 hours - blood cultures are pending - toradol as needed for moderate pain (2) Cellulitis Current Visit: Yes Status: Acute Code(s): L03.90 - CELLULITIS, UNSPECIFIED SNOMED Code(s): 714744503 Comment: Right facial swelling and redness - will continue clindamycin IV - blood cultures are pending - was given decradron 10 mg in the ER yesterday - swelling improved today (3) Rheumatoid arthritis Current Visit: Yes Status: Acute Code(s): M06.9 - RHEUMATOID ARTHRITIS, UNSPECIFIED SNOMED Code(s): 40165070 Comment: Not currently receiving treatment - follows with Dr. hall (4) Bipolar 1 disorder Current Visit: Yes Status: Acute Code(s): F31.9 - BIPOLAR DISORDER, UNSPECIFIED SNOMED Code(s): 246182362 Comment: not currently on tx stable (5) DVT prophylaxis Current Visit: Yes Status: Acute Code(s): Z29.9 - ENCOUNTER FOR PROPHYLACTIC MEASURES, UNSPECIFIED SNOMED Code(s): 182131929 Comment: ambulation (6) Full code status Current Visit: Yes Status: Acute Code(s): Z78.9 - OTHER SPECIFIED HEALTH STATUS SNOMED Code(s): 190083098 Status and Disposition: inpatient -will discharge home when medically stable
[2019-08-28] MEDS ORDERED: Fluconazole 150 MG TAB PO ONE (17:00)
[2019-08-29] MEDS: Clindamycin 600 MG/D5W BAG(*) 600 MG/50 ML BAG IV SCH ×2 (00:13→08:24)
[2019-08-29] MEDS: oxyCODONE/Acetamin 5/325 MG* TAB PO PRN ×2 (00:13→09:06)
[2019-08-29] MEDS: Ketorolac INJ* 15 MG/ML 1 ML VIAL IV PUSH PRN ×2 (05:55→11:20)
[2019-08-29] MEDS: Chlorhexidine MOUTHWASH 0.12%* 15 ML UDC SWISH SPIT SCH (09:06)
[2019-08-29] MEDS: Lactobacillus Acidophilus* 1 TAB PO SCH (09:06)
[2019-08-29] MEDS: Nicotine PATCH 21 MG/24 HR* PATCH TRANSDERM SCH (09:07)
--- NOTE | 2019-08-29 10:19 | PN ---
Subjective Date of Service: 08/29/19 Interval History: Ms. Romo reports that she is doing much better overall though she continues to have some significant pain to the right jaw. She is swallowing easily. She is eager for discharge to home. Family History: Unchanged from Admission Social History: Unchanged from Admission Past Medical History: Unchanged from Admission Objective Active Medications: Acetaminophen (Tylenol Tab*) 650 mg PO Q6H PRN Chlorhexidine Gluconate (Peridex Mouth Wash 0.12%*) 15 ml SWISH SPIT TID [facility] Docusate Sodium (Colace Cap*) 100 mg PO BID PRN Clindamycin HCl/Dextrose (Cleocin 600 Mg/50 Ml(*)) 600 mg in 50 mls @ 100 mls/ hr IV Q8H [facility] Ketorolac Tromethamine (Toradol Inj*) 15 mg IV PUSH Q6H PRN Lactobacillus Rhamnosus (Lactobacillus Acidophilus*) 1 tab PO DAILY [facility] Nicotine (Nicotine Patch 21 Mg/24 Hr*) 1 patch TRANSDERM DAILY [facility] Oxycodone/Acetaminophen (Percocet 5/325 Tab*) 1 tab PO Q6H PRN Pharmacy Profile Note (Nicotine Patch Removal Note*) 1 note PATCH OFF 2100 [place] Polyethylene Glycol/Electrolytes (Miralax (17 Gm Dose [place])) 17 gm PO DAILY PRN Vital Signs: Temp Pulse Resp BP Pulse Ox 98.2 F 57 16 126/74 98 08/29/19 07:56 08/29/19 07:56 08/29/19 09:06 08/29/19 07:56 08/29/19 07:56 Oxygen Devices in Use Now: None Appearance: Female lying in bed in NAD Eyes: No Scleral Icterus Ears/Nose/Mouth/Throat: Mucous Membranes Moist Neck: Trachea Midline Respiratory: Symmetrical Chest Expansion and Respiratory Effort, Clear to Auscultation Cardiovascular: No Edema Abdominal: NL Sounds; No Tenderness; No Distention Extremities: No Edema Skin: - - Right cheek, jaw and upper neck swollen, no erythema Neurological: Alert and Oriented x 3, NL Muscle Strength and Tone Nutrition: Taking PO's Result Diagrams: 08/28/19 06:09 08/27/19 14:53 Assess/Plan/Problems-Billing Assessment: Ms. Romo is a 39 y.o female with a past medical hx of RA and bipolar who presented to the emergency room with dental pain and right facial swelling. admitted for cellulitis. - Patient Problems (1) Cellulitis Comment: - R/T dental infection - Right facial swelling and redness resolving - Switch to po clindamycin for discharge - blood cultures negative thus far (2) Rheumatoid arthritis Comment: - Not currently receiving treatment - follows with Dr. hall (3) Bipolar 1 disorder Comment: - not currently on tx - stable (4) DVT prophylaxis Comment: - low risk, early mobility (5) Full code status Comment: Status and Disposition: Discharge to home
[2019-08-29 11:10] VITALS: BP 114/70
--- NOTE | 2019-08-29 12:26 | DS ---
HOSPITAL MEDICINE DISCHARGE SUMMARY: DATE OF ADMISSION: 08/27/19 DATE OF DISCHARGE: 08/29/19 PRIMARY CARE PHYSICIAN: None. ATTENDING PHYSICIAN: Dr. Jasper Kan * (dictated provided by Destini Leos NP) PRIMARY DIAGNOSIS: Cellulitis related to dental infection. SECONDARY DIAGNOSES: 1. Psoriatic arthritis. 2. Rheumatoid arthritis. 3. Migraine. 4. Bipolar disorder. MEDICATIONS AT TIME OF DISCHARGE: 1. Clindamycin 600 mg p.o. 3 times daily x10 days. 2. Oxycodone/acetaminophen 5/325 mg 1 tab p.o. q.8 hours p.r.n. pain (#15). 3. Advil p.r.n. HOSPITAL COURSE: Ms. Romo is a 39-year-old female with past medical history as noted above, who presented to the hospital on 08/27/19 with concern for facial swelling and dental pain. Please see dictated H and P from Chelle Aceves NP for complete details. In brief, the patient noted that she started having dental pain about 3 days prior to admission. She was seen by provider and started on amoxicillin 500 mg. She took about 5 doses, but continued to have increasing facial swelling and pain, so she presented to the emergency room for evaluation. She was found to have extensive facial swelling, was concerned for development of cellulitis. White blood cell count was 12.4. She is afebrile. Vitals were stable. C-reactive protein was 40.63. Ms. Romo was admitted to the hospital. She was placed on clindamycin intravenously with pain medications p.r.n. With this she has had good improvement in resolutionof her swelling and redness to her face. She is tolerating oral intake. She has had no fever. Her blood cultures are negative. Ms. Romo is medically stable for discharge to home. She will be following up with a dentist in [place] for surgery once she has some resolution of her dental infection. DISPOSITION: Home. DIET: Regular. ACTIVITY: As tolerated. FOLLOWUP PLANS: Please follow up the dentist that he has contacted down at [place] for oral surgery. We encourage you to follow up to obtain a primary care provider. You can call our office at [phone] if you need assistance finding a provider. TIME SPENT: Approximately 60 minutes was spent on the discharge of this patient , more than half time spent with the patient at the bedside reviewing the events leading up and during this hospitalization, performing the physical examination, and reviewing my plan of care. DESTINI LEOS NP [id number]/[facility] #: [id number] KYLE
== END 2019-08-29 11:35 | disposition home or self-care (01) ==
LOC: ED 12:13 → MED 18:24
PROVIDERS: ADMIT Nurse Practitioner; ATTEND Internal Medicine
DX: L03.211 Cellulitis of face (principal); L03.221 Cellulitis of neck; K08.89 Other specified disorders of teeth and supporting structures; M06.9 Rheumatoid arthritis, unspecified; L40.50 Arthropathic psoriasis, unspecified; F17.210 Nicotine dependence, cigarettes, uncomplicated; G43.909 Migraine, unspecified, not intractable, without status migrainosus; F31.9 Bipolar disorder, unspecified; Z79.899 Other long term (current) drug therapy; Z88.8 Allergy status to other drugs, medicaments and biological substances; J45.909 Unspecified asthma, uncomplicated
CPT/HCPCS: 36415; 70491; 80053; 83605; 85025; 86140; 87040; 96365; 96366; 96375; 96376; 99283; A9270-GY; G0378; J1100; J1885; J2270; J2405; Q9967

== ENCOUNTER 2019-09-17 11:06 | Inpatient (IN) | payer MEDICAID, OTHER ==
--- OUTSIDE RECORDS SUMMARY | 2019-09-17 11:41 | XMS REPORT | Continuity of Care Document ---
:1980 External Reference #:[id number] Author Name Destini Leos N.P. (transmitted by agent of provider Dionna Bro) Address [address] , [place] [address] Care Team Providers Name Role Phone Margaux Kendall NP - Family Care Team Information Recruitment Specialist [phone] Problems Description No Information Available Social History Type Date Description Comments Sex Unknown ETOH Use Occasionally consumes alcohol Tobacco Use Start: Unknown Heavy tobacco smoker (more than 10 cigarettes/day) Tobacco Use Start: Unknown She tried Zyban and CHantix Smoking Status Reviewed: 09/07/19 She tried Zyban and CHantix Exercise Type/Frequency Exercises regularly Allergies, Adverse Reactions, Alerts Active Allergies Reaction Severity Comments Date Codeine 07/21/2015 Medications Active Medications SIG Qnty Indications Ordering Date Provider Clindamycin HCL 1 by mouth tid 21caps L03.211 Rosas Barajas MD 09/07/2019 300mg Capsules Cyclobenzaprine HCL one by mouth at 30tabs Hola Avila, 05/18/2019 10mg at bedtime as M.D. Tablets needed for spasms Triamcinolone Acetonide apply twice 80gm M05.79 Hola Avila, 06/04/2017 0.1% daily as needed M.D. Ointment for rash (avoid face) Ibuprofen take one 90tabs Hola Avila, 800mg Tablets capsule/tablet M.D. by mouth twice daily as needed for pain Albuterol Sulfate puff every 6 Unknown Powder hours as needed Multi Adult Gummies 2 by mouth Unknown Chewtabs every day Clindamycin HCL 2 by mouth Unknown 300mg three times a Capsules day History Medications Xeljanz 1 by mouth twice 60tabs Hola Avila, 05/18/2019 - 5mg Tablets a day M.D. 09/07/2019 Prednisone take 4 tabs by 30tabs Hola Avila, 05/18/2019 - 10mg Tablets mouth daily for 2 M.D. 08/31/2019 days then 3 tabs daily for 2 days then 2 tabs for 2 days then 1 tab for 2 days then d/c, avoid with NSAIDs Medications Administered in Office Medication SIG Qnty Indications Ordering Provider Date Depomedrol 40MG Rolanda Foss M.D. 12/10/2016 Injection Depomedrol 40MG Rolanda Foss M.D. 12/10/2016 Injection Depomedrol 40MG Rolanda Foss M.D. 04/16/2016 Injection Depomedrol 40MG Rolanda Foss M.D. 04/16/2016 Injection Depomedrol 40MG Rolanda Foss M.D. 12/22/2015 Injection Depomedrol 40MG Rolanda Foss M.D. 12/22/2015 Injection Depomedrol 40MG Rolanda Foss M.D. 09/21/2015 Injection Immunizations CPT Code Status Date Vaccine Reaction Lot # [id number] Given 05/18/2019 Influenza Virus Vaccine, [id number] Quadrivalent, Split, Preservative Free 27455 Given 06/03/2017 Influenza Virus Vaccine, no immediate reaction [id number] Quadrivalent, Split, noted Preservative Free 35874 Given 07/06/2016 Pneumococcal Conjugate No reaction noted [id number] Vaccine 13 Valent For Intramuscular Use Vital Signs Date Vital Result Comment 09/07/2019 8:28am Height 66.5 inches 5'6.50" Weight 173.00 lb Heart Rate 86 /min BP Systolic Sitting 144 mmHg BP Diastolic Sitting 88 mmHg Body Temperature 97.0 F O2 % BldC Oximetry 99 % BMI (Body Mass Index) 27.5 kg/m2 05/18/2019 1:40pm Height 66.5 inches 5'6.50" Weight 180.00 lb Heart Rate 80 /min BP Systolic Sitting 130 mmHg BP Diastolic Sitting 87 mmHg Respiratory Rate 18 /min Body Temperature 98.2 F Pain Level 7 O2 % BldC Oximetry 97 % BMI (Body Mass Index) 28.6 kg/m2 Results Description No Information Available Procedures Date Code Description Status 07/09/2018 15036350 Mammogram Completed Medical Devices Description No Information Available Encounters Type Date Location Provider Dx Diagnosis Office Visit 08/29/2019 [facility] Destini Leos, L03.211 Cellulitis of 9:41a ,cam N.P. face Hospitalists K08.9 Disorder of teeth and supporting structures, unspecified Office Visit 08/27/2019 [facility] Chelle L03.211 Cellulitis of 9:40a Assoccam NP face Hospitalists K08.9 Disorder of teeth and supporting structures, unspecified Office Visit 05/18/2019 1:40p Rheumatology Hola Avila, M05.79 [facility] w tigist factor [facility] w/o org/sys involv L40.50 Arthropathic psoriasis, unspecified Z79.899 Other superintendent marine oil terminal (current) drug therapy M54.2 Cervicalgia F17.210 Nicotine dependence, cigarettes, uncomplicated E55.9 Vitamin D deficiency, unspecified M25.551 Pain in right hip Z23 Encounter for immunization Assessments Date Code Description Provider 09/07/2019 L03.211 Cellulitis of face Deanna Chavis, DO 09/07/2019 F17.210 Nicotine dependence, cigarettes, Deanna Chavis, DO uncomplicated 09/07/2019 M05.79 Rheumatoid arthritis with rheumatoid factor Deanna Chavis , DO of multiple sites without organ or systems involvement 08/29/2019 L03.211 Cellulitis of face Destini Leos, N.P. 08/29/2019 K08.9 Disorder of teeth and supporting structures, Destini Leos, N.P. unspecified 08/28/2019 L03.211 Cellulitis of face Chelle Ketan, TITLE DEPARTMENT MANAGER 08/28/2019 K08.9 Disorder of teeth and supporting structures, Chelle Ketan, TITLE DEPARTMENT MANAGER unspecified 08/27/2019 L03.211 Cellulitis of face Chelle Ketan, TITLE DEPARTMENT MANAGER 08/27/2019 K08.9 Disorder of teeth and supporting structures, Chellemoe Aceves, TITLE DEPARTMENT MANAGER unspecified 05/18/2019 M05.79 Rheumatoid arthritis with rheumatoid factor Hola Avila M.D. of multiple sites without organ or systems involvement 05/18/2019 L40.50 Arthropathic psoriasis, unspecified Hola Avila M.D. 05/18/2019 Z79.899 Other superintendent marine oil terminal (current) drug therapy Hola Avila M.D. 05/18/2019 M54.2 Cervicalgia Hola Avila M.D. 05/18/2019 F17.210 Nicotine dependence, cigarettes, Hola Avila M.D. uncomplicated 05/18/2019 E55.9 Vitamin D deficiency, unspecified Hola Avila M.D. 05/18/2019 M25.551 Pain in right hip Hola Avila M.D. 05/18/2019 Z23 Encounter for immunization Hola Avila M.D. Plan of Treatment 09/07/2019 - Deanna Chavis, DOL03.211 Cellulitis of faceNew Medication: Clindamycin HCL 300 mg - 1 by mouth tidComments:take breaks from ibuprofen I am giving you another short supply of clindamycin in case you aren't able to get in to see the oral iaeaymnF03.210 Nicotine dependence, cigarettes, uncomplicatedComments:Talk to us when you're ready to talk about ilekfzcgR82.79 Rheumatoid arthritis with rheumatoid factor of multiple sites without organ or systems involvement Functional Status Description No Information Available Mental Status Description No Information Available Referrals Description No Information Available
--- OUTSIDE RECORDS SUMMARY | 2019-09-17 11:41 | XMS REPORT | Continuity of Care Document ---
:1980 External Reference #:[id number] Author Name Chelle Aceves NP (transmitted by agent of provider Dionna Bro) Address [address] [address] Care Team Providers Name Role Phone Margaux Kendall NP - Family Care Team Information Dam Worker [phone] Problems Description No Information Available Social History [...] Code Status Date Vaccine Reaction Lot # [id number] Given 05/18/2019 Influenza Virus Vaccine, [id number] Quadrivalent, Split, Preservative Free 91488 Given 06/03/2017 Influenza Virus Vaccine, no immediate reaction [id number] Quadrivalent, Split, noted Preservative Free 15295 Given 07/06/2016 Pneumococcal Conjugate No reaction noted [id number] Vaccine 13 Valent For Intramuscular Use Vital [...] Available Procedures Date Code Description Status 07/09/2018 [id number] Mammogram Completed Medical Devices Description No Information Available Encounters Type Date Location Provider Dx Diagnosis Office Visit 08/29/2019 [facility] Destini Leos, L03.211 Cellulitis of 9:41a Assoc,cam N.P. face Hospitalists K08.9 Disorder of teeth and supporting structures, unspecified Office Visit 08/27/2019 [facility] Chelle L03.211 Cellulitis of 9:40a Assoc,cam Aceves NP face Hospitalists K08.9 Disorder of teeth and supporting structures, unspecified Office Visit 05/18/2019 1:40p Rheumatology Hola Avila, M05.79 [facility] w tigist factor mult site w/o org/sys involv L40.50 Arthropathic psoriasis, unspecified Z79.899 Other long-term (current) drug therapy M54.2 Cervicalgia F17.210 Nicotine [...] Disorder of teeth and supporting structures, Destini Leos N.P. unspecified 08/28/2019 L03.211 Cellulitis of face Chelle Aceves, LORA 08/28/2019 K08.9 Disorder of teeth and supporting structures, Chelle Aceves NP unspecified 08/27/2019 L03.211 Cellulitis of face Chelle Aceves, GEAR CODING MACHINE OPERATOR 08/27/2019 K08.9 Disorder of teeth and supporting structures, Chelle Aceves, LORA unspecified 05/18/2019 M05.79 Rheumatoid arthritis with rheumatoid factor Hola Avila M.D. of multiple sites without organ or systems involvement 05/18/2019 L40.50 Arthropathic psoriasis, unspecified Hola Avila M.D. 05/18/2019 Z79.899 Other long-term (current) drug therapy Hola Avila M.D. 05/18/2019 M54.2 Cervicalgia Hola Avila M.D. 05/18/2019 F17.210 Nicotine dependence, cigarettes, Hola Avila M.D. uncomplicated 05/18/2019 E55.9 Vitamin D deficiency, unspecified Hoal Avila M.D. 05/18/2019 M25.551 Pain in right [...] to get in to see the oral vpqrwnjD08.210 Nicotine dependence, cigarettes, uncomplicatedComments:Talk to us when you're ready to talk about firwxdkeF03.79 Rheumatoid arthritis with rheumatoid factor of multiple sites without organ or systems involvement Functional Status Description No Information Available Mental Status Description No Information Available Referrals Description No Information Available
--- OUTSIDE RECORDS SUMMARY | 2019-09-17 11:41 | XMS REPORT | Continuity of Care Document ---
:1980 External Reference #:[id number] Author Name Deanna Chavis DO (transmitted by agent of provider Maria G Madrid) Address [address] [place] [address] Care Team Providers Name Role Phone Margaux Kendall NP - Family Care Team Information Air Cargo Ground Operations Supervisor [phone] Problems Description No Information Available Social History [...] Date Provider Clindamycin HCL 1 by mouth 9caps L03.211 Deanna Chavis, 09/07/2019 300mg DO Capsules Cyclobenzaprine HCL one by mouth at [...] Code Status Date Vaccine Reaction Lot # 39959 Given 05/18/2019 Influenza Virus Vaccine, [id number] Quadrivalent, Split, Preservative Free 21651 Given 06/03/2017 Influenza Virus Vaccine, no immediate reaction [id number] Quadrivalent, Split, noted Preservative Free 41538 Given 07/06/2016 Pneumococcal Conjugate No reaction noted [id number] Vaccine 13 Valent For Intramuscular Use Vital [...] Available Procedures Date Code Description Status 07/09/2018 [id number] Mammogram Completed Medical Devices Description No Information Available Encounters Type Date Location Provider Dx Diagnosis Office Visit 09/07/2019 [facility] Deanna Chavis, L03.211 Cellulitis of face 8:20a Medicine - Suite DO R F17.210 Nicotine dependence, cigarettes, uncomplicated M05.79 Rheu arthritis w rheu factor mult site w/o org/sys involv Office Visit 05/18/2019 1:40p Rheumatology Hola Avila, M05.79 Rhe[facility] w rheu factor mult site w/o org/sys involv L40.50 Arthropathic psoriasis, unspecified Z79.899 Other mcfp (current) drug therapy M54.2 Cervicalgia F17.210 Nicotine dependence, cigarettes, uncomplicated E55.9 Vitamin D deficiency, unspecified M25.551 Pain in right hip Z23 Encounter for immunization Assessments Date Code Description Provider 09/07/2019 L03.211 Cellulitis of face Deanna Chavis, DO 09/07/2019 F17.210 Nicotine dependence, cigarettes, uncomplicated Deanna Chavis, DO 09/07/2019 M05.79 Rheumatoid arthritis with rheumatoid factor of Deanna Chavis, multiple sites without organ or systems involvement 05/18/2019 M05.79 Rheumatoid arthritis with rheumatoid factor of Hola Avila M.D. multiple sites without organ or systems involvement 05/18/2019 L40.50 Arthropathic psoriasis, unspecified Hola Avila M.D. 05/18/2019 Z79.899 Other intermodal owner operator truck driver (current) drug therapy Hola Avila M.D. 05/18/2019 M54.2 Cervicalgia Hola Avila M.D. 05/18/2019 F17.210 Nicotine dependence, cigarettes, uncomplicated Hola Avila M.D. 05/18/2019 E55.9 Vitamin D deficiency, unspecified Hola Avila M.D. 05/18/2019 M25.551 Pain in right hip Hola Avila M.D. 05/18/2019 Z23 Encounter for immunization Hola Avila M.D. Plan of Treatment 09/07/2019 - Deanna Chavis, DOL03.211 Cellulitis of faceNew Medication: Clindamycin HCL 300 mg - 1 by mouthComments:take breaks from ibuprofen I am giving you another short supply of clindamycin in case you aren't able to get in to see the oral ijoztceT75.210 Nicotine dependence, cigarettes, uncomplicatedComments:Talk to us when you're ready to talk about acnolprlP79.79 Rheumatoid arthritis with rheumatoid factor of multiple sites without organ or systems involvement Functional Status Description No Information Available Mental Status Description No Information Available Referrals Description No Information Available
--- OUTSIDE RECORDS SUMMARY | 2019-09-17 11:41 | XMS REPORT | Continuity of Care Document ---
:1980 External Reference #:[id number] Author Name Chelle Aceves NP (transmitted by agent of provider Dionna Bro) Address [address] [place] [address] Care Team Providers Name Role Phone Margaux Kendall NP - Family Care Team Information Floor Helper [phone] Problems Description No Information Available Social History [...] Code Status Date Vaccine Reaction Lot # 94435 Given 05/18/2019 Influenza Virus Vaccine, [id number] Quadrivalent, Split, Preservative Free 17484 Given 06/03/2017 Influenza Virus Vaccine, no immediate reaction [id number] Quadrivalent, Split, noted Preservative Free 20395 Given 07/06/2016 Pneumococcal Conjugate No reaction noted [id number] Vaccine 13 Valent For Intramuscular Use Vital [...] Available Procedures Date Code Description Status 07/09/2018 [id number] Mammogram Completed Medical Devices Description No Information Available Encounters Type Date Location Provider Dx Diagnosis Office Visit 08/29/2019 [facility] Destini Leos, L03.211 Cellulitis of 9:41a Assoc,cam N.P. face Hospitalists K08.9 Disorder of teeth and supporting structures, unspecified Office Visit 08/27/2019 [facility] Chelle L03.211 Cellulitis of 9:40a Assoc,cam Aceves NP face Hospitalists K08.9 Disorder of teeth and supporting structures, unspecified Office Visit 05/18/2019 1:40p Rheumatology Hola Avila, M05.79 Tigist arthritis [facility] Birgit w tigist factor mult site w/o org/sys involv L40.50 Arthropathic psoriasis, unspecified Z79.899 Other snf (current) drug therapy M54.2 Cervicalgia F17.210 Nicotine dependence, cigarettes, uncomplicated E55.9 Vitamin D deficiency, unspecified M25.551 Pain in right hip Z23 Encounter for immunization Assessments Date Code Description Provider 09/07/2019 L03.211 Cellulitis of face Daenna Cahvis, DO 09/07/2019 F17.210 Nicotine dependence, cigarettes, Deanna [...] 08/27/2019 L03.211 Cellulitis of face Chelle Aceves, PATIENT SUPPORT ASSISTANT 08/27/2019 K08.9 Disorder of teeth and supporting structures, Chelle Aceves, LORA unspecified 05/18/2019 M05.79 Rheumatoid arthritis with rheumatoid factor Hola Avila M.D. of multiple sites without organ or systems involvement 05/18/2019 L40.50 Arthropathic psoriasis, unspecified Hola Avila M.D. 05/18/2019 Z79.899 Other snf (current) drug therapy Hola Avila M.D. 05/18/2019 [...] to get in to see the oral wacepvnD33.210 Nicotine dependence, cigarettes, uncomplicatedComments:Talk to us when you're ready to talk about vesohontP27.79 Rheumatoid arthritis with rheumatoid factor of multiple sites without organ or systems involvement Functional Status Description No Information Available Mental Status Description No Information Available Referrals Description No Information Available
--- NOTE | 2019-09-17 13:28 | ED ---
Throat Pain/Nasal Congestion - HPI Summary HPI Summary: 39 year old F with hx rheumatoid arthritis and psoriatic arthritis arriving via private car to [facility] complains of worsening right sided dental pain rated 10/10 in severity and right facial swelling for about one month. Was seen here 3 weeks ago, admitted for 3 days for facial cellulitis, and d/c. Her symptoms improved after she got home but have worsened in the last 3 days. Was seen by her primary care provider earlier this week who prescribed patient antibiotics. She has been taking clindamycin 300 mg TID since Mon 09/13 with no change in symptoms. Patient was scheduled to have tooth removed operatively tomorrow but was cancelled. No fever. Symptoms aggravated by nothing. Symptoms alleviated by nothing. Medications reviewed. Allergies noted. - History of Current Complaint Chief Complaint: EDDentalPain Time Seen by Provider: 09/17/19 13:24 Hx Obtained From: Patient Onset/Duration: Lasting Weeks - 4, Still Present Severity: Severe - 10/10 - Allergies/Home Medications Allergies/Adverse Reactions: Allergies Allergy/AdvReac Type Severity Reaction Status Date / Time codeine Allergy Airway Verified 09/17/19 11:09 Obstruction Home Medications: Home Medications Clindamycin Cap(NF) [Clindamycin Cap 300 mg Cap(NF)] 300 mg PO TID 09/17/19 [ History Confirmed 09/17/19] Ibuprofen TAB* [Motrin TAB* 800 MG] 800 mg PO Q6H PRN 09/17/19 [History Confirmed 09/17/19] PMH/Surg Hx/FS Hx/Imm Hx Endocrine/Hematology History: Denies: Hx Diabetes, Hx Thyroid Disease Cardiovascular History: Denies: Hx Congestive Heart Failure, Hx Deep Vein Thrombosis, Hx Hypertension , Hx Myocardial Infarction, Hx Pacemaker/ICD, Other Cardiovascular Problems/ Disorders Respiratory History: Reports: Hx Asthma Denies: Hx Chronic Obstructive Pulmonary Disease (COPD), Hx Lung Cancer, Hx Pneumonia, Hx Pulmonary Embolism, Other Respiratory Problems/Disorders GI History: Denies: Hx Gall Bladder Disease, Hx Gastrointestinal Bleed, Hx Ulcer, Hx Urosepsis, Other GI Disorders History: Reports: Hx Kidney Infection - years ago Denies: Hx Kidney Stones, Hx Renal Disease, Other Problems/Disorders Musculoskeletal History: Reports: Hx Arthritis - Rheumatoid Arthritis, psoriatic arthritis, Hx Tendonitis - HX OF IN HANDS IN THE PAST Denies: Other Musculoskeletal History Sensory History: Denies: Hx Contacts or Glasses, Hx Hearing Aid Opthamlomology History: Denies: Hx Contacts or Glasses Neurological History: Reports: Hx Headaches, Hx Migraine - 2 TIMES MONTHLY- EXCEDRIN MIGRAIN AND ADVIL FOR AND REST Denies: Hx Dementia, Hx Seizures, Hx Transient Ischemic Attacks (TIA), Other Neuro Impairments/Disorders Psychiatric History: Reports: Hx Anxiety - HX OF- NO MEDICATION FOR AT THIS TIME , Hx Depression - HX OF- NO MEDICATION FOR AT THIS TIME Denies: Hx Panic Disorder, Hx Schizophrenia, Hx Bipolar Disorder - Surgical History Surgery Procedure, Year, and Place: Tubal ligation, 2013. Appendectomy, , 2002. [facility] - 2010. right carpal tunnel 01/2017, [facility]. LEFT CARPAL TUNNEL [id number] Hx Anesthesia Reactions: Yes - NAUSEA AND VOMITING Infectious Disease History: No Infectious Disease History: Reports: Hx of Known/Suspected MRSA - left 3rd finger 2012 Denies: Hx Clostridium Difficile, Hx Hepatitis, Hx Human Immunodeficiency Virus (HIV), Hx Shingles, Hx Tuberculosis, Hx Known/Suspected VRE, Hx Known/ Suspected VRSA, History Other Infectious Disease, Traveled Outside the [place] in Last 30 Days - Family History Known Family History: Positive: Cardiac Disease, Hypertension, Diabetes, Renal Disease - Paternal and maternal grandmothers had kidney "cancer." - Social History Alcohol Use: Occasionally Alcohol Amount: 3 per week Substance Use Type: Reports: None Substance Use Comment - Amount & Last Used: occasionally Hx Tobacco Use: Yes Smoking Status (MU): Heavy Every Day Tobacco Smoker Type: Cigarettes Amount Used/How Often: pack a day for 15 yrs Have You Smoked in the Last Year: Yes Review of Systems Negative: Fever Positive: Other - right sided dental pain, right facial swelling All Other Systems Reviewed And Are Negative: Yes Physical Exam - Summary Physical Exam Summary: Constitutional: Well-developed, Well-nourished, Alert. (-) Distressed Skin: Warm, Dry HENT: Normocephalic; Atraumatic; Diffuse swelling of right mandible; Dental martin to the first lower right molar; Surrounding induration concerning for periapical abscess Eyes: Conjunctiva normal Neck: Musculoskeletal ROM normal neck. (-) JVD, (-) Stridor, (-) Nuchal rigidity Cardio: Rhythm regular, rate normal, Heart sounds normal; Intact distal pulses; Radial pulses are 2+ and symmetric. (-) Murmur Pulmonary/Chest wall: Effort normal. (-) Respiratory distress, (-) Wheezes, (-) Rales Abd: Soft, (-) tenderness, (-) Distension, (-) Guarding, (-) Rebound Musculoskeletal: (-) Edema Lymph: (-) Cervical adenopathy Neuro: Alert, Oriented x3 Psych: Mood and affect Normal Triage Information Reviewed: Yes Vital Signs On Initial Exam: Initial Vitals Temp Pulse Resp BP Pulse Ox 97.5 F 99 20 134/96 100 09/17/19 11:08 09/17/19 11:08 09/17/19 11:08 09/17/19 11:08 09/17/19 11:08 Vital Signs Reviewed: Yes Procedures - Sedation Patient Received Moderate/Deep Sedation with Procedure: No - Incision and Drainage dental Site: right lower molar Anesthesia: Local Instrument(s): Scalpel Diagnostics - Vital Signs Vital Signs Temp Pulse Resp BP Pulse Ox 09/17/19 13:05 99.3 F 101 20 166/107 98 09/17/19 11:08 97.5 F 99 20 134/96 100 - Laboratory Lab Statement: Any lab studies that have been ordered have been reviewed, and results considered in the medical decision making process. Re-Evaluation - Re-Evaluation First Eval Re-Evaluation Time: 13:33 - report given to [facility] [place] Second Eval Re-Evaluation Time: 15:01 - Dr. Avila, dentist at [facility], recommends dose of antibiotics and admission for 24 hour observation. If she does not improve or worsen, then transfer to facility with dental services. No current operative intervention needed now. Third Eval Re-Evaluation Time: 15:11 Change: Improved - patient updated on plan. she agrees to admission. EENT Course/Dx - Course Course Of Treatment: 39-year-old female with recent dental infection presenting with facial swelling. - : Exam with swelling of the right cheek, mild trismus, no submandibular fullness. Sweling near right apical region near the first and second molars. Attempted I&D without success. Patient given pain control. Discuss with on-call dentistry [facility] who recommends admission for IV antibiotics, if worsening would recommend transfer at that time. - Diagnoses Provider Diagnoses: Facial cellulitis, Dental caries - Provider Notifications Discussed Care Of Patient With: Angeli De La Cruz - agrees to admit Time Discussed With Above Provider: 15:51 Discharge ED - Sign-Out/Discharge Documenting (check all that apply): Patient Departure - Discharge Plan Condition: Stable Disposition: ADMITTED TO [facility] Referrals: Deanna Chavis DO [Primary Care Provider] - - Billing Disposition and Condition Condition: STABLE Disposition: Admitted to [facility] - Attestation Statements Document Initiated by Scribe: Yes Documenting Scribe: Moira Daniel Provider For Whom Isael is Documenting (Include Credential): Vern Ricardo MD Scribe Attestation: I, Moira Daniel, scribed for Vern Ricardo MD on 09/17/19 at 1558. Scribe Documentation Reviewed: Yes Provider Attestation: The documentation as recorded by the scribe, Moira Daniel accurately reflects the service I personally performed and the decisions made by me, Vern Ricardo MD Status of Scribe Document: Viewed
[2019-09-17] MEDS ORDERED: Lidocaine 1% INJ* 10 MG/ML 30 ML SDV INJ ONE (13:35)
[2019-09-17] MEDS ORDERED: Benzocaine/Butamben/Tetracain (CETACAINE - SINGLE USE) 5 gm TOPICAL ONE (13:37)
[2019-09-17] MEDS ORDERED: oxyCODONE/Acetamin 5/325 MG* TAB PO ONE ×2 (13:53→15:53)
[2019-09-17] MEDS ORDERED: Clindamycin 600 MG/D5W BAG(*) 600 MG/50 ML BAG IV ONE (15:06)
[2019-09-17] MEDS ORDERED: Morphine 4 MG/ML VIAL (1 ml) 4 MG/ML VIAL IV ONE (16:27)
[2019-09-17] MEDS ORDERED: Ketorolac INJ* 30 MG/ML 1 ML VIAL IV PUSH ONE (17:36)
[2019-09-17] MEDS ORDERED: Senna TAB 8.6 mg* TAB PO PRN (17:41)
[2019-09-17] MEDS ORDERED: Acetaminophen TAB* 325 MG PO PRN (17:41)
[2019-09-17] MEDS ORDERED: Al Hydrox/Mg Hydrox/Simet LIQ* 30 ML UDC PO PRN (17:41)
[2019-09-17] MEDS ORDERED: oxyCODONE TAB* 5 MG TAB PO PRN (17:47)
[2019-09-17] MEDS ORDERED: Piperacillin/Tazobac ADVAN(*) 3.375 GM in NS 0.9% 100 ML* 100 ML IVPB ONE (17:52)
[2019-09-17] MEDS ORDERED: Zosyn per Pharmacy* NOTE FOLLOW UP SCH (18:00)
[2019-09-17] MEDS ORDERED: Piperacillin/Tazobac ADVAN(*) 3.375 GM in NS 0.9% 100 ML* 100 ML IVPB SCH (18:00)
[2019-09-17 18:07] LABS: ABS Basophils 0.1 10^3/ul (0-0.2); ABS Eosinophils 0.4 10^3/ul (0-0.6); ABS Lymphocytes 1.6 10^3/ul (1.0-4.8); ABS Monocytes 0.8 10^3/ul (0-0.8); ABS Neutrophils 8.3 10^3/ul (1.5-7.7); Eosinophil % 3.5 %; Hematocrit 38 % (35-47); Hemoglobin 12.8 g/dL (12.0-16.0); Lymphocyte % 14.6 %; Mean Corpuscular HGB Conc 34 g/dL (31-36); Mean Corpuscular Hemoglobin 31 pg (27-31); Mean Corpuscular Volume 91 fL (80-97); Mean Platelet Volume 8.8 fL (7.4-10.4); Nucleated Red Blood Cells % 0.1; Platelet Count 349 10^3/uL (150-450); Red Blood Count 4.17 10^6 /uL (3.70-4.87); Red Cell Distribution Width 12 % (10-15); White Blood Count 11.2 10^3/uL (3.5-10.8)
[2019-09-17 18:21] LABS: Albumin 4.3 g/dL (3.2-5.2); BUN/Creatinine Ratio 28.2 (8-20); Calcium 9.9 mg/dL (8.6-10.3); EGFR African American 112.1 (>60); EGFR Non-African American 92.6 (>60); Globulin 4.3 g/dL (2-4); Potassium 4.1 mmol/L (3.5-5.0); Total Bilirubin 0.3 mg/dL (0.2-1.0); Total Protein 8.6 g/dL (6.4-8.9)
[2019-09-17] MEDS ORDERED: Iohexol 300* (CONTRAST) 10 ML SDV IV ONE (18:41)
--- NOTE | 2019-09-17 19:47 | HP ---
ADMISSION HISTORY AND PHYSICAL: DATE OF ADMISSION: 09/17/19 ATTENDING PHYSICIAN WHILE IN THE HOSPITAL: Dr. Angeli De La Cruz * (dictated by EYAL Martinez). PRIMARY CARE PROVIDER: Dr. Deanna Chavis. CHIEF COMPLAINT: Worsening dental pain and neck pain. HISTORY OF PRESENT ILLNESS: Harriet Romo is a 39-year-old white female with past medical history significant for psoriatic arthritis, rheumatoid arthritis, bipolar disorder, chronic migraines, and dental infection which has been ongoing, who presents to the emergency department today due to ongoing dental pain and worsening pain and swelling in her neck. The patient was recently hospitalized at this facility and discharged on 08/29/19 for dental infection with associated neck cellulitis. The patient received IV clindamycin and was discharged with oral clindamycin. She had a scheduled appointment with an oral surgeon in [place] from [facility]. However, unfortunately, due to the COVID-19 pandemic, they have canceled procedures and her appointment has been canceled. It was scheduled for tomorrow. She feels that in the last few days, the swelling in her jaw has spread upwards towards her ear and down further towards in her neck and the pain has worsened. She denies fevers, chills, increased erythema. She does note that she has some difficulty breathing when she lies on her left side, but otherwise has no chest pain or difficulty breathing at this time. Denies abdominal pain, nausea, or vomiting. She did have diarrhea while she was taking p.o. clindamycin, but has not had diarrhea since. When her appointment was scheduled, she did call her primary care office who ordered her p.o. clindamycin, but due to feelings of her worsening condition, she came to the emergency department today. Dr. Ricarod, the emergency department physician, called the dental service at [facility] and they recommended that she receive 24 hours of IV antibiotics either clindamycin or Zosyn per her report. Per her report, additionally they recommended that if she is not improving after 24 hours, then she could potentially be transferred to their facility for tooth extraction. Of note, Dr. Ricardo additionally attempted to perform an I and D along the gum line on the right inferior side and there was no success. PAST MEDICAL HISTORY: 1. Psoriatic arthritis. 2. Rheumatoid arthritis. 3. Bipolar disorder. 4. Chronic migraines. 5. Anxiety. PAST SURGICAL HISTORY: 1. Tubal ligation. 2. Appendectomy. 3. Bilateral carpal tunnel release. 4. Endometrial ablation. HOME MEDICATIONS: 1. Ibuprofen 800 mg p.o. q.6 hours p.r.n. pain. 2. Clindamycin 300 mg p.o. t.i.d. ALLERGIES: Airway obstruction to CODEINE. FAMILY HISTORY: Both of her parents are living. Her father has a history of diabetes and hypertension. Her mother has a history of colon cancer, diabetes, and hypertension. SOCIAL HISTORY: The patient is a hairdresser. She is and has 2 children. She smokes a pack a day and she has been since age 17. She denies alcohol use and she smokes marijuana daily or every other day. The patient's mother is her surrogate medical decision maker should she need one, her name is Natasha Romo, phone number [phone]. REVIEW OF SYSTEMS: An 11-point review of systems was completed and all pertinent positives and negatives are above in the HPI. All other systems are negative. PHYSICAL EXAMINATION GENERAL: A young white female, lying in hospital bed, appearing comfortable, in minimal distress, tearful at times. VITAL SIGNS: Temperature 97.5 degrees Fahrenheit, pulse 99, respiratory rate 20 , oxygen saturation 100% on room air, blood pressure 134/96. HEENT: Eyes: PERRL. Sclerae anicteric. ENT: Mucous membranes moist. No obvious region of fluctuance along the gum line. NECK: There is obvious edema to the right side of the face along the jawline into the right cheek and down into the neck on the right side. There is no fullness in the submandibular area. LYMPHATICS: The patient has right-sided posterior and anterior cervical lymphadenopathy. LUNGS: The patient is not using accessory muscles to breathe. No tachypnea. Lungs are clear to auscultation throughout. CARDIO: Regular rate and rhythm without murmurs, rubs, or gallops. ABDOMEN: Soft, nontender, nondistended. EXTREMITIES: No clubbing, cyanosis, or edema. NEURO: The patient is alert and oriented x3. DIAGNOSTIC STUDIES/LAB DATA: Labs are pending at this time. Of note, CT of the neck with contrast from previous hospitalization performed on 08/27/19 with impression: Right facial and anterior neck cellulitis with no organized fluid collection. This is likely odontogenic in the context of an untreated right first mandibular molar caries. The airway is grossly patent. The right jugular vein opacifies normally. Cervical lymphadenopathy is likely reactive. ASSESSMENT AND PLAN: Harriet Romo is a 39-year-old white female with past medical history significant for psoriatic arthritis, rheumatoid arthritis, chronic migraines, and bipolar disorder, who presented to the emergency department for worsening dental pain and facial/neck pain. The patient will be admitted OBV for: 1. Dental infection with associated neck cellulitis. The patient was recently hospitalized for this, though at this time I would like to rule out possible abscess. I have ordered a CT of the soft tissues of the neck with contrast. This will additionally include the maxillofacial region as this scan starts at the frontal sinuses. Considering that she is continuing to worsen, an abscess needs to be ruled out. Considering it seems that clindamycin is not helping this infection from worsening, I am going to use Zosyn as per recommendation by the dental service at [facility]. If she is not improving in 24 hours, then perhaps she could be transferred or our ENT service could be contacted here at this facility considering the circumstances with her outpatient oral surgeon canceling. At this time, I am awaiting CBC and I am unable to determine if she has leukocytosis; however, she is afebrile and tells me she has been without fever at home as well. At this point, I have no concern for Mayur's and her airway is stable, she is able to speak out of her tongue and there is no fullness in her submandibular space. I will continue pain control. 2. Psoriatic arthritis and rheumatoid arthritis. It does not appear the patient is taking any medications for this at this time. 3. Bipolar disorder. It does not appear that the patient is taking any medications for this at this time. 4. FEN: The patient may have a regular unrestricted diet. No fluids indicated at this time. I am awaiting metabolic panel and we will determine if electrolytes can be repleted at that point. 5. DVT prophylaxis: The patient has a DVT risk score of 0. Ambulation will be sufficient for prophylaxis, but I will order SCDs as well. 6. Code status: The patient is full code. TIME SPENT: Approximately 55 minutes was spent on this admission, approximately half this time was spent at bedside evaluating the patient and discussing the plan of care. This case has been reviewed with by attending, Dr. Angeli De La Cruz, and she agrees with this plan of care. EYAL MARTINEZ [id number]/CPS #: [id number] KYLE
[2019-09-17] MEDS: oxyCODONE TAB* 5 MG TAB PO PRN (21:14)
[2019-09-17] MEDS: Ketorolac INJ* 30 MG/ML 1 ML VIAL IV PUSH PRN (21:26)
[2019-09-18] MEDS: oxyCODONE TAB* 5 MG TAB PO PRN (00:38)
[2019-09-18] MEDS: ZOSYN 3.375 GM Q8H per EXTENDED INFUSION IVPB SCH ×6 (00:42→17:07)
[2019-09-18] MEDS ORDERED: Morphine INJ* 4 MG/ML 1 ML SYRINGE (NEW SYRINGE VERSION) IV ONE (02:08)
[2019-09-18] MEDS ORDERED: Ondansetron INJ* 2 MG/ML VIAL IV ONE (02:08)
[2019-09-18] MEDS: Ketorolac INJ* 30 MG/ML 1 ML VIAL IV PUSH PRN ×4 (03:41→23:03)
--- NOTE | 2019-09-18 04:08 | PN ---
Hospitalist Progress Note Date of Service: 09/18/19 Called to patient's bedside with concern for increased swelling to right jaw. Patient states her jaw is painful but toradol has helped. She has been waiting weeks to get tooth pulled; dental office will not see patients until October. She is able to speak, swallow, and breathe without difficulty. No drooling, stridor, or other concern noted. No drainage seen or reported inside the mouth. Continue to monitor respiratory status and swallowing status.
[2019-09-18 05:01] LABS: ABS Basophils 0.1 10^3/ul (0-0.2); ABS Eosinophils 0.4 10^3/ul (0-0.6); ABS Lymphocytes 1.8 10^3/ul (1.0-4.8); ABS Monocytes 0.8 10^3/ul (0-0.8); ABS Neutrophils 8.7 10^3/ul (1.5-7.7); Eosinophil % 3.5 %; Hematocrit 29 % (35-47); Hemoglobin 9.7 g/dL (12.0-16.0); Lymphocyte % 15.2 %; Mean Corpuscular HGB Conc 34 g/dL (31-36); Mean Corpuscular Hemoglobin 31 pg (27-31); Mean Corpuscular Volume 91 fL (80-97); Mean Platelet Volume 8.5 fL (7.4-10.4); Platelet Count 368 10^3/uL (150-450); Red Blood Count 3.13 10^6 /uL (3.70-4.87); Red Cell Distribution Width 12 % (10-15); White Blood Count 11.8 10^3/uL (3.5-10.8)
[2019-09-18 05:09] LABS: Calcium 9.1 mg/dL (8.6-10.3); Potassium 4.3 mmol/L (3.5-5.0)
[2019-09-18 05:14] LABS: BUN/Creatinine Ratio 29.6 (8-20); EGFR African American 112.1 (>60); EGFR Non-African American 92.6 (>60)
[2019-09-18] MEDS: oxyCODONE/Acetamin 5/325 MG* TAB PO PRN ×4 (10:18→19:48)
--- NOTE | 2019-09-18 10:53 | PN ---
Subjective Date of Service: 09/18/19 Interval History: Prior to my evaluation, patient eloped from the hospital and her brought her back. Patient feel the swelling in her face is worsened since last night. She tells me her pain is under control at this time. She denies difficulty breathing, chest pain, fever/chills. She has mild abd discomfort but denies n/v/d. She continues to feel anxious. She tells me she hasn't had a psychiatrist in a long time and hasn't taken psych medications in a long time. She doesn't believe she has ever been on a mood stabilizer for her bipolar disorder and tells me she was diagnosed at age 16. Objective Active Medications: Acetaminophen (Tylenol Tab*) 650 mg PO Q4H PRN PRN Reason: PAIN - MILD Al Hydrox/Mg Hydrox/Simethicone (Maalox Plus*) 30 ml PO Q6H PRN PRN Reason: INDIGESTION Piperacillin Sod/Tazobactam (Sod 3.375 gm/ Sodium Chloride) 100 mls @ 25 mls/ hr IVPB Q8H [facility] Last Admin: 09/18/19 00:42 Dose: 25 mls/hr Ketorolac Tromethamine (Toradol Inj*) 30 mg IV PUSH Q6H PRN PRN Reason: PAIN - MODERATE Last Admin: 09/18/19 03:41 Dose: 30 mg Oxycodone/Acetaminophen (Percocet 5/325 Tab*) 1 tab PO Q4H PRN PRN Reason: PAIN - MODERATE Oxycodone/Acetaminophen (Percocet 5/325 Tab*) 2 tab PO Q4H PRN PRN Reason: PAIN - SEVERE Last Admin: 09/18/19 10:18 Dose: 2 tab Pharmacy Consult (Zosyn Per Pharmacy*) 1 note FOLLOW UP .ZOSYN PER PHARMACY [facility] Senna (Senokot 8.6 Mg Tab*) 1 tab PO BID PRN PRN Reason: CONSTIPATION Vital Signs - 8 hr 09/18/19 09/18/19 09/18/19 03:10 03:50 03:51 Temperature 97.8 F Pulse Rate 84 Respiratory 24 20 20 Rate Blood Pressure 128/57 (mmHg) O2 Sat by Pulse 100 Oximetry 09/18/19 09/18/19 09/18/19 07:48 10:16 10:18 Temperature 98.6 F 97.3 F Pulse Rate 84 86 Respiratory 16 18 18 Rate Blood Pressure 121/66 107/65 (mmHg) O2 Sat by Pulse 100 100 Oximetry Oxygen Devices in Use Now: None Appearance: Young, white female, sitting on edge of bed, appearing comfortable and in NAD Eyes: No Scleral Icterus, - - PERRL Ears/Nose/Mouth/Throat: Mucous Membranes Moist, - - no apparent fluid collection along gingiva Neck: - - edema to submandibular space with more fullness today but only on right side, tender to palpation Respiratory: Symmetrical Chest Expansion and Respiratory Effort, Clear to Auscultation Cardiovascular: NL Sounds; No Murmurs; No JVD, RRR Abdominal: - - abd soft/nontender/nondistended Extremities: No Edema, No Clubbing, Cyanosis Skin: - - faint blanchable erythema to chin and right cheek along jawline; edema along right jaw line appears worsened since yesterday Neurological: Alert and Oriented x 3 Result Diagrams: 09/18/19 04:52 09/18/19 04:51 Assess/Plan/Problems-Billing Assessment: 39 yo female with PMHx BPD, psoriatic arthritis, rheumatoid arthritis, and an ongoing dental infection presents with continuing worsening of dental pain and neck/jaw swelling and pain. - Patient Problems (1) Periodontal abscess Current Visit: Yes Status: Acute Code(s): K05.219 - AGGRESSIVE PERIODONTITIS , LOCALIZED, UNSPECIFIED SEVERITY SNOMED Code(s): 29290123 Comment: -new during this hospitalization, in August no abscess was yet demonstrate on CT neck -outpatient oral surgeon cancelled procedure for tooth extraction which was scheduled for today -no OMFS coverage at this facility -appreciate ENT evaluation by Dr. Mccallum, plans to take her to OR tomorrow for I& D to temporize the infection -continue Zosyn as this as worsened despite clindamycin -has a mild leukocytosis but is afebrile -it appears edema is worse today -needs urgent evaluation by oral surgeon; Case management is calling local oral surgeons, hopeful for evaluation this week outpatient (2) Facial cellulitis Current Visit: Yes Status: Acute Code(s): L03.211 - CELLULITIS OF FACE SNOMED Code(s): 107388960 Comment: -2/2 periodontal abscess -continue zosyn as previously discussed (3) Anxiety Current Visit: Yes Status: Acute Code(s): F41.9 - ANXIETY DISORDER, UNSPECIFIED SNOMED Code(s): 31188017 Comment: -patient interested in starting a medication to treat her anxiety -does not currently have psychiatrist -given her questionable hx of BPD, SSRI is not favorable without mood stabilizer -briefly discussed with psychiatry, will start gabapentin 200 mg TID as an anxiolytic -will need close f/u with PCP (4) Bipolar 1 disorder Current Visit: No Status: Acute Code(s): F31.9 - BIPOLAR DISORDER, UNSPECIFIED SNOMED Code(s): 265859219 Comment: -not currently on tx -stable (5) Rheumatoid arthritis Current Visit: No Status: Acute Code(s): M06.9 - RHEUMATOID ARTHRITIS, UNSPECIFIED SNOMED Code(s): 98337490 Comment: -not currently receiving treatment -follows with Dr. Avila (6) DVT prophylaxis Current Visit: No Status: Acute Code(s): Z29.9 - ENCOUNTER FOR PROPHYLACTIC MEASURES, UNSPECIFIED SNOMED Code(s): 004679297 Comment: -SCDs (7) Full code status Current Visit: No Status: Acute Code(s): Z78.9 - OTHER SPECIFIED HEALTH STATUS SNOMED Code(s): 841885126 Comment: Status and Disposition: procedure tomorrow AM, pending medical improvement
[2019-09-18] MEDS: Gabapentin CAP(*) 100 MG PO SCH ×2 (15:33→19:48)
--- NOTE | 2019-09-18 15:44 | CONS ---
CONSULTATION REPORT: DATE OF CONSULT: 09/18/19 HISTORY OF PRESENT ILLNESS: This is a 39-year-old woman who has a dental abscess. She was admitted l ast night with worsening swelling along the right side of the jaw. She had been diagnosed with a den ayan infection last month, has been maintained in the outpatient setting on oral clindamycin and was s cheduled to have the offending tooth extracted today, but received a call from the oral surgeon in [facility] that all surgeries were being postponed due to the coronavirus pandemic. She was getting wor se and so presented to the ED last night. She was admitted, placed on IV Zosyn and has had worsening pain and swelling today. CT scan demonstrated swelling along the right side of the jaw with what ap pears to be a fluid collection adjacent to the right side of the mandible. Airway is fine on CT imag ing. PAST MEDICAL HISTORY: This patient is significant for rheumatoid arthritis, psoriatic arthritis, bip olar disorder, and migraine. PAST SURGICAL HISTORY: Significant for tubal ligation, appendectomy, carpal tunnel release bilateral ly, and endometrial ablation. MEDICATIONS: The patient was on ibuprofen and clindamycin in the outpatient setting. ALLERGIES: She has allergy to CODEINE. PHYSICAL EXAM: Her exam is significant for an uncomfortable appearing woman with clear-cut swelling along the right jawline. Intraoral exam reveals fullness at the right lower gingivobuccal sulcus wit h fluctuance to palpation consistent with abscess. She has an adjacent carious tooth. The patient's neck is otherwise benign. There is no evidence of floor of mouth swelling to suggest impending Ludw ig's angina. She is afebrile. Vital signs are stable. DIAGNOSTIC STUDIES/LAB DATA: She has a white count of 11.8 with a hemoglobin of 9.7 and platelets of 368. Her CT scan was reviewed in detail and does show what appears to be a well-defined collection adjacen t to the right mandible. ASSESSMENT: Dental abscess. PLAN: Plan is for transoral incision and drainage of the dental abscess in the operating room. The patient unfortunately ate at 11 o'clock today and so we will plan on taking her to the operating room tomorrow morning. She should be kept n.p.o. after midnight. Continue Zosyn IV as well as pain cont rol. [id number]/[facility] #: [id number]
[2019-09-18] MEDS ORDERED: Morphine INJ* 2 MG/ML 1 ML SYRINGE (TWO MG - NEW SYRINGE VERSION) IV PRN (17:28)
[2019-09-18] MEDS: Ondansetron INJ* 2 MG/ML VIAL IV PRN ×2 (20:15→20:33)
[2019-09-19] MEDS: ZOSYN 3.375 GM Q8H per EXTENDED INFUSION IVPB SCH ×6 (00:42→16:47)
[2019-09-19] MEDS: Ondansetron INJ* 2 MG/ML VIAL IV PRN (03:27)
[2019-09-19] MEDS ORDERED: Morphine INJ* 2 MG/ML 1 ML SYRINGE (TWO MG - NEW SYRINGE VERSION) IV ONE (04:24)
[2019-09-19 04:43] LABS: ABS Eosinophils 0.2 10^3/ul (0-0.6); ABS Lymphocytes 1.2 10^3/ul (1.0-4.8); ABS Monocytes 0.6 10^3/ul (0-0.8); ABS Neutrophils 6.6 10^3/ul (1.5-7.7); Eosinophil % 2.5 %; Hematocrit 32 % (35-47); Hemoglobin 10.9 g/dL (12.0-16.0); Lymphocyte % 13.8 %; Mean Corpuscular HGB Conc 35 g/dL (31-36); Mean Corpuscular Hemoglobin 31 pg (27-31); Mean Corpuscular Volume 90 fL (80-97); Mean Platelet Volume 8.7 fL (7.4-10.4); Platelet Count 316 10^3/uL (150-450); Red Blood Count 3.52 10^6 /uL (3.70-4.87); Red Cell Distribution Width 12 % (10-15); White Blood Count 8.7 10^3/uL (3.5-10.8)
[2019-09-19] MEDS: Ketorolac INJ* 30 MG/ML 1 ML VIAL IV PUSH PRN ×3 (05:02→19:41)
[2019-09-19] MEDS: NS 0.9% 1000 ML** 1,000 ML IV SCH (06:08)
[2019-09-19] MEDS ORDERED: fentaNYL* 50 MCG/ML 2 ML VIAL (100 MCG VIAL) ONE ×3 (07:42→09:05)
[2019-09-19] MEDS ORDERED: Propofol* 10 MG/ML 20 ML BTL ONE (07:42)
[2019-09-19] MEDS ORDERED: Midazolam* 1 MG/ML 5 ML VIAL (5 MG) ONE (07:42)
[2019-09-19] MEDS ORDERED: Succinylcholine* 20 MG/ML 10 ML VIAL ONE (07:42)
[2019-09-19] MEDS ORDERED: Lidocaine 2% PF * 5 ML VIAL ONE (07:42)
[2019-09-19] MEDS ORDERED: Naloxone* 0.4 MG/ML 1 ML VIAL IV PRN (07:47)
[2019-09-19] MEDS ORDERED: HYDROcodone/ACETAMIN 5-325 MG* 1 TAB PO PRN (07:47)
[2019-09-19] MEDS ORDERED: fentaNYL* 50 MCG/ML 2 ML VIAL (100 MCG VIAL) IV PRN (07:47)
[2019-09-19] MEDS ORDERED: DiMENhydriNATE IV* 50 MG/ML VIAL IV PUSH PRN (07:47)
[2019-09-19] MEDS ORDERED: oxyCODONE/Acetamin 5/325 MG* TAB PO PRN (07:47)
[2019-09-19] MEDS ORDERED: Lidocaine 1% w EPI 1:100,000* MDV 20 ML VIAL ONE (08:03)
[2019-09-19] MEDS ORDERED: Dexamethasone IV* 4 MG/ML 1 ML (4 MG) ONE (08:26)
[2019-09-19] MEDS ORDERED: Ondansetron INJ* 2 MG/ML VIAL ONE (08:33)
[2019-09-19] MEDS ORDERED: HYDROcodone/ACETAMIN 5-325 MG* 1 TAB ONE (09:45)
--- NOTE | 2019-09-19 10:08 | OP ---
OPERATIVE REPORT: DATE OF OPERATION: 09/19/19 DATE OF : 84 ATTENDING SURGEON: Hal Mccallum MD. CIVIL DESIGN TECHNICIAN: None. ANESTHESIA: General. PRE-OP DIAGNOSIS: Dental abscess. POST-OP DIAGNOSIS: Dental abscess. OPERATIVE PROCEDURE: Transoral incision and drainage of dental abscess with placement of Bend marco a in. ESTIMATED BLOOD LOSS: Negligible. SPECIMENS: Cultures were obtained. INDICATIONS: This is a 39-year-old woman who was admitted the night before last for swelling along t he right side of the jaw. She had been fighting a chronic dental infection for about a month and was scheduled for extraction of the offending tooth, but her dentist office closed and rescheduled all p rocedures, and the patient was failing outpatient treatment and so was admitted for IV Zosyn. CT sca n obtained, which demonstrated a well-defined abscess in the right gingival buccal sulcus adjacent to the mandible. The patient failed to improve on IV antibiotics. I was consulted and the decision was made to bring the patient to the operating room for incision and drainage. FINDINGS: Large abscess against the buccal surface of the right side of the mandible apparently seco ndary to an infection caused by a cracked and carious tooth #30. DESCRIPTION OF PROCEDURE: On 09/19/19, the patient was brought to the operating room, general anesth esia was induced, and oral endotracheal tube was placed. The patient was draped and a time-out was p erformed. Approximately, 8 cc of 1% lidocaine with epinephrine were infiltrated into the right gingi rosey buccal sulcus and into the abscess cavity itself. The abscess was well defined and pointing. A 1-inch incision was made over the top of it to open the abscess cavity. Pus was released and culture d. The abscess was then extensively irrigated with saline. A Bend drain was then placed and secu red with 3 stitches of 4-0 Prolene. The patient was returned to the care of the anesthesiologist, ex tubated, and delivered to the PACU in stable condition. [id number]/[facility] #: [id number]
[2019-09-19] MEDS: Gabapentin CAP(*) 100 MG PO SCH ×3 (10:10→19:40)
--- NOTE | 2019-09-19 12:21 | PN ---
Subjective Date of Service: 09/19/19 Interval History: Ms. Romo is feeling better this morning. She reports decreased pain and facial swelling since I&D this morning, but she thinks the area is very hard and not significantly improved. Tolerating clears. Denies CP, SOB, cough, N/V. No concerns from nursing. Family History: Unchanged from Admission Social History: Unchanged from Admission Past Medical History: Unchanged from Admission Objective Active Medications: Acetaminophen (Tylenol Tab*) 650 mg PO Q4H PRN PAIN - MILD Al Hydrox/Mg Hydrox/Simethicone (Maalox Plus*) 30 ml PO Q6H PRN INDIGESTION Gabapentin (Neurontin Cap(*)) 200 mg PO TID CECILLE Piperacillin Sod/Tazobactam (Sod 3.375 gm/ Sodium Chloride) 100 mls @ 25 mls/ hr IVPB Q8H CECILLE Sodium Chloride (Ns 0.9% 1000 Ml) 1,000 mls @ 100 mls/hr IV PER RATE CECILLE Ketorolac Tromethamine (Toradol Inj*) 30 mg IV PUSH Q6H PRN PAIN - MODERATE Morphine Sulfate (Morphine Inj (Syringe))*) 2 mg IV Q2H PRN severe pain breakthrough Ondansetron HCl (Zofran Inj*) 4 mg IV Q6H PRN NAUSEA Oxycodone/Acetaminophen (Percocet 5/325 Tab*) 1 tab PO Q4H PRN PAIN - MODERATE Oxycodone/Acetaminophen (Percocet 5/325 Tab*) 2 tab PO Q4H PRN PAIN - SEVERE Senna (Senokot 8.6 Mg Tab*) 1 tab PO BID PRN CONSTIPATION Vital Signs - 8 hr 09/19/19 09/19/19 09/19/19 05:10 07:32 08:00 Temperature 98.6 F Pulse Rate 69 Respiratory 18 18 18 Rate Blood Pressure 113/74 (mmHg) O2 Sat by Pulse 100 Oximetry 09/19/19 09/19/19 09/19/19 09:03 09:05 09:06 Temperature 97.7 F Pulse Rate 96 83 Respiratory 23 20 Rate Blood Pressure 134/96 137/98 (mmHg) O2 Sat by Pulse 95 96 Oximetry 09/19/19 09/19/19 09/19/19 09:10 09:15 09:20 Temperature Pulse Rate 76 78 67 Respiratory 13 16 13 Rate Blood Pressure 128/83 119/95 142/86 (mmHg) O2 Sat by Pulse 95 100 100 Oximetry 09/19/19 09/19/19 09/19/19 09:30 09:45 09:46 Temperature Pulse Rate 67 73 Respiratory 17 14 18 Rate Blood Pressure 132/91 142/96 (mmHg) O2 Sat by Pulse 98 100 Oximetry 09/19/19 09/19/19 09/19/19 10:05 10:10 10:24 Temperature 97.8 F Pulse Rate 68 Respiratory 18 18 18 Rate Blood Pressure 122/77 (mmHg) O2 Sat by Pulse 100 Oximetry 09/19/19 09/19/19 09/19/19 11:01 11:55 12:16 Temperature 97.9 F 97.5 F Pulse Rate 78 58 Respiratory 20 18 18 Rate Blood Pressure 116/77 118/76 (mmHg) O2 Sat by Pulse 98 100 Oximetry Oxygen Devices in Use Now: None Appearance: Young adult female sitting in bed in NAD Ears/Nose/Mouth/Throat: Mucous Membranes Moist Neck: - - Severe edema to right jaw extending down into the neck without significant erythema Respiratory: Symmetrical Chest Expansion and Respiratory Effort, Clear to Auscultation Cardiovascular: NL Sounds; No Murmurs; No JVD, RRR Extremities: No Edema Neurological: Alert and Oriented x 3 Lines/Tubes/Other Access: Clean, Dry and Intact Peripheral IV Nutrition: Taking PO's Result Diagrams: 09/19/19 03:56 09/18/19 04:51 Assess/Plan/Problems-Billing Assessment: Ms. Romo is a 39 yo F with PMH of bipolar depression, psoriatic arthritis, rheumatoid arthritis, and an ongoing dental infection; presented with worsening of dental pain and neck/jaw swelling and pain. - Patient Problems (1) Periodontal abscess Code(s): K05.219 - AGGRESSIVE PERIODONTITIS, LOCALIZED, UNSPECIFIED SEVERITY Comment: - New during this hospitalization; in August no abscess was seen on CT - Outpatient oral surgeon cancelled procedure for tooth extraction which was scheduled for 09/17 - Appreciate ENT consult; OR today for I&D with Dr. Mccallum - Was not improving on clinda - Needs urgent evaluation by oral surgeon; Case management is calling local oral surgeons, hopeful for evaluation this week outpatient - Continue Zosyn (2) Facial cellulitis Code(s): L03.211 - CELLULITIS OF FACE Comment: - Erythema resolved (3) Anxiety Code(s): F41.9 - ANXIETY DISORDER, UNSPECIFIED Comment: - Patient interested in starting a medication to treat anxiety - Does not currently have psychiatrist - Given her questionable hx of BPD, SSRI is not favorable without mood stabilizer - Briefly discussed with psychiatry who recommends gabapentin 200 mg TID as an anxiolytic - Continue gabapentin (4) Bipolar 1 disorder Code(s): F31.9 - BIPOLAR DISORDER, UNSPECIFIED Comment: - Plan as above (5) Rheumatoid arthritis Code(s): M06.9 - RHEUMATOID ARTHRITIS, UNSPECIFIED Comment: - Not currently receiving treatment - Follows with Dr. Avila (6) DVT prophylaxis Code(s): Z29.9 - ENCOUNTER FOR PROPHYLACTIC MEASURES, UNSPECIFIED Comment: - SCDs (7) Full code status Code(s): Z78.9 - OTHER SPECIFIED HEALTH STATUS Comment: Status and Disposition: Inpatient. Anticipate d/c home when medically stable. Attending: Angeli De La Cruz
[2019-09-19] MEDS: Chlorhexidine MOUTHWASH 0.12%* 15 ML UDC SWISH SPIT SCH ×2 (15:30→19:40)
[2019-09-19] MEDS: oxyCODONE/Acetamin 5/325 MG* TAB PO PRN (22:08)
[2019-09-20] MEDS: ZOSYN 3.375 GM Q8H per EXTENDED INFUSION IVPB SCH ×4 (01:20→09:08)
[2019-09-20] MEDS: oxyCODONE/Acetamin 5/325 MG* TAB PO PRN ×3 (03:06→11:12)
[2019-09-20] MEDS: Ketorolac INJ* 30 MG/ML 1 ML VIAL IV PUSH PRN (03:07)
[2019-09-20 05:40] LABS: ABS Lymphocytes 1.6 10^3/ul (1.0-4.8); ABS Monocytes 0.5 10^3/ul (0-0.8); ABS Neutrophils 6.4 10^3/ul (1.5-7.7); Eosinophil % 0.3 %; Hematocrit 28 % (35-47); Hemoglobin 9.4 g/dL (12.0-16.0); Lymphocyte % 18.6 %; Mean Corpuscular HGB Conc 34 g/dL (31-36); Mean Corpuscular Hemoglobin 30 pg (27-31); Mean Corpuscular Volume 90 fL (80-97); Mean Platelet Volume 8.3 fL (7.4-10.4); Nucleated Red Blood Cells % 0.1; Platelet Count 303 10^3/uL (150-450); Red Blood Count 3.11 10^6 /uL (3.70-4.87); Red Cell Distribution Width 12 % (10-15); White Blood Count 8.6 10^3/uL (3.5-10.8)
[2019-09-20 05:57] LABS: BUN/Creatinine Ratio 21.7 (8-20); Calcium 8.6 mg/dL (8.6-10.3); EGFR Non-African American 152.9 (>60); Potassium 3.9 mmol/L (3.5-5.0)
[2019-09-20] MEDS: Gabapentin CAP(*) 100 MG PO SCH (07:30)
[2019-09-20] MEDS: Chlorhexidine MOUTHWASH 0.12%* 15 ML UDC SWISH SPIT SCH (07:31)
[2019-09-20 08:12] VITALS: BP 115/72
[2019-09-20] MEDS: NS 0.9% 1000 ML** 1,000 ML IV SCH (09:11)
[2019-09-20] MEDS ORDERED: Fluconazole 150 MG TAB PO ONE (10:11)
[2019-09-20] MEDS ORDERED: Lactobacillus Acidophilus* 1 TAB PO SCH (11:00)
--- NOTE | 2019-09-20 11:08 | PN ---
PROGRESS REPORT: DATE OF EXAMINATION: 09/20/19 HISTORY OF PRESENT ILLNESS: The patient was evaluated in her bed. She reported significant improvement in pain, persistent diminished right facial swelling. She looked to be substantially improved both in terms of demeanor and the swelling of the mandible. Oral cavity exam reveals her drain to be in good position with significantly less swelling of the mucosa of the gingival buccal sulcus. The patient has been afebrile. Her white count is normal this morning and she has been tolerating clear liquid diet. ASSESSMENT AND PLAN: My assessment is that the patient is improving status post incision and drainage of her dental abscess. I would recommend discharge today on oral clindamycin 300 mg p.o. 4 times a day for 10 days. She should also use chlorhexidine oral rinse 15 mL swish and spit t.i.d. also for 10 days. We will plan to see the patient in followup mid week and will contact the patient from our office to set that up. The patient also indicates that she has some symptoms consistent with yeast infection, and so the Hospitalist will likely place her some oral Diflucan before discharge. She can advance her diet to a soft diet taking pains to chew only on the left side of her mouth and avoid foods such as nuts which have significant amount of hard, insoluble particulates. She understands this point and was reviewed with her and we will see her in the outpatient setting. [id number]/[facility] #: [id number] MTDD
[2019-09-20] MEDS ORDERED: Clindamycin CAP* 150 MG PO SCH (12:00)
--- NOTE | 2019-09-20 16:51 | DS ---
CC: Deanna Chavis DO; Hal Mccallum MD * DISCHARGE SUMMARY: DATE OF ADMISSION: 09/17/19 DATE OF DISCHARGE: 09/20/19 PRIMARY CARE PHYSICIAN: Deanna Chavis DO ENT: Hal Mccallum MD ATTENDING PHYSICIAN: Dr. Angeli De La Cruz.* (DICTATED BY JUAN ALBERTO ANGULO NP) PRIMARY DIAGNOSES: 1. Periodontal abscess. 2. Facial cellulitis. SECONDARY DIAGNOSES: 1. Anxiety. 2. Bipolar disorder. 3. Rheumatoid arthritis. STUDIES WHILE IN THE HOSPITAL: 1. Neck CT on 09/17/19 reads as right mandibular periodontal abscess. Associated adjacent dental caries. CONSULTATIONS WHILE IN THE HOSPITAL: 1. Dr. Mccallum with ENT. PROCEDURES WHILE IN THE HOSPITAL: 1. Transoral incision and drainage of dental abscess with placement of [place] drain with Dr. Mccallum on 09/19/19. HISTORY OF PRESENT ILLNESS AND HOSPITAL COURSE: Ms. Romo is a 39-year-old female with past medical history of anxiety, bipolar disorder, and RA who presented to the emergency room 09/17/19 with complaints of worsening dental pain. Please see the history and physical by EYAL Martinez, for complete summary with the events leading up to this hospitalization. In short, the patient was recently hospitalized at this facility and was discharged on due to a dental infection with neck cellulitis. She was discharged with clindamycin. She does have an appointment to seen an oral surgeon, though because of the COVID-19 pandemic, her extraction was cancelled and she felt as though her symptoms were only worsening. The emergency room at [facility] was contacted and they recommended that the patient receive at least 24 hours of IV antibiotics, and that if she was not improving after that time, she could potentially be transferred to their facility. There was no evidence of sepsis on admission. She had imaging as noted above. She was admitted by the hospitalist service. The patient was placed on Zosyn. There was some concern because she had had been on clindamycin for a number of weeks. She did show some improvement on Zosyn and ENT was consulted. The patient was seen by Dr. Mccallum on 09/18/19. At that point, he decided that the best option would be for incision and drainage of the abscess. He took the patient to the OR on 09/19/19, where he performed an I and D with drain placement. The patient reported nearly immediate relief after the procedure, pain was significantly improved, and she felt as though the facial swelling was also improved. She was seen by Dr. Mccallum again today and he was happy with her improvement. He advised that she would be stable for discharge with plans to follow up with him for drain removal and plans to follow up with an oral surgeon for extraction for definitive treatment of this issue. After speaking with the patient, she is agreeable with this plan. She again reports that pain is significantly improved and she only had significant pain while going to bed last night. She feels as though the swelling has improved and she has been able to tolerate clear liquids and full liquids. PHYSICAL EXAMINATION: She is alert and oriented to time. There are no focal neurological deficits. There is moderate swelling to the right jaw extending down into the neck. This is quite hard to the touch. There is no significant erythema surrounding the area. Airway is not compromised. Heart has a regular rate and rhythm without murmurs, rubs, or gallops. Lungs are clear to auscultation without rhonchi, wheezes, or rubs. Physical exam is otherwise benign. Ms. Romo is stable for discharge. Most recent vitals are as follows: Temp 97.9, heart rate 60, respiratory rate 18, oxygen saturation 100% on room air, blood pressure 115/72. DISCHARGE MEDICATIONS: New: 1. Clindamycin 300 mg p.o. q.6 hours x 10 days. 2. Chlorhexidine 15 mL swish and spit t.i.d. 3. Fluconazole 150 mg p.o. once p.r.n. vaginal itching. 4. Gabapentin 200 mg p.o. t.i.d. 5. Lactobacillus 1 tab p.o. daily. 6. Percocet 5/325 one tab p.o. q.12 hours p.r.n. severe pain. Continued: 1. Ibuprofen 800 mg p.o. q.6 hours p.r.n. moderate pain. DISCHARGE PLAN: Ms. Romo will be discharged home. Activity will be as tolerated. Diet per ENT recommendation will be soft foods only. She does still have a drain in place. Medications are noted above. Per ENT recommendation, she will be on 4 times daily clindamycin for [address] Mccallum indicated that he would reassess the patient in the office and prescribe her any other additional antibiotics if needed. She should be using chlorhexidine mouth wash She has been provided with a small supply of Percocet for severe pain, most of which she is experiencing overnight. During this hospitalization, she was started on gabapentin which was recommended by Psychiatry for bipolar treatment. She has done well on this medication while here in the hospital and can continue this going forward, though she should follow up with a psychiatrist. The patient did complain of vaginal itching this morning and Whitley symptoms. This is not surprising as she has been on antibiotics for quite some time now, she did get 1 dose of fluconazole prior to leaving the hospital and I have additionally prescribed her 1 tab that she may take in 1 week if she has any recurrence of symptoms which is possible as she will also be on antibiotics at that time. She can continue taking ibuprofen for general pain management. As noted above, she will need to follow up with Dr. Mccallum in the office and he indicated that his office will contact her to make an appointment. I did provide her with the phone number to [facility]. She will need to call tomorrow to make an appointment and she understands this. She should follow up with her primary care provider in the next 4 to 7 days if possible. She will return to the emergency room or nearest hospital for any worsening of symptoms, shortness of breath, lightheadedness, dizziness, chest discomfort, high fever, chills, night sweats, loss of consciousness, or any other worrisome signs or symptoms. DISCHARGE CONDITION: Stable. DISCHARGE DISPOSITION: Home. This is a summarized report of a complex medical history and hospital stay. For further details please see the entire medical record. TIME SPENT: Approximately 40 minutes was spent on this discharge. JUAN ALBERTO ANGULO NP [id number]/[facility] #: [id number] KYLE
== END 2019-09-20 11:30 | disposition home or self-care (01) | DRG 364 ==
LOC: ED 11:06 → MED 18:03 → OBSVTOIN 09-18 15:20
PROVIDERS: ADMIT Hospitalist; ATTEND Hospitalist
PROC: 0W9300Z Drainage of Oral Cavity and Throat with Drainage Device, Open Approach (ICD-10-PCS; principal; 2019-09-19 08:00)
DX: L03.211 Cellulitis of face (principal); M27.2 Inflammatory conditions of jaws; B95.4 Other streptococcus as the cause of diseases classified elsewhere; F41.9 Anxiety disorder, unspecified; F31.9 Bipolar disorder, unspecified; M06.9 Rheumatoid arthritis, unspecified; K02.9 Dental caries, unspecified; B37.3 Candidiasis of vulva and vagina; L40.50 Arthropathic psoriasis, unspecified; F17.210 Nicotine dependence, cigarettes, uncomplicated; G43.909 Migraine, unspecified, not intractable, without status migrainosus; Z88.5 Allergy status to narcotic agent; Z83.3 Family history of diabetes mellitus; Z82.49 Family history of ischemic heart disease and other diseases of the circulatory system; Z80.0 Family history of malignant neoplasm of digestive organs
CPT/HCPCS: 36415; 70491; 80048; 80053; 85025; 87070; 87073; 87077; 87186; 96365; 96375; 99284; A9270-GY; G0378; J0330; J1100; J1885; J2250; J2270; J2405; J2543; J2704; J3010; Q9967